=== PATIENT | female | born 1940 | race Caucasian/White ===

== ENCOUNTER → 2016-11-16 | Outpatient (CLI) | payer BC ==
[~2016-11-16] MED LIST: AMLO-114 PO; ASPI81TA28 PO; BYS/5 PO; DARI15TA PO; ERGO1CAP35 PO; GLC/500 PO; LEVO50TA6 PO; NTRGSL/4 UT; OMEP20TA14 PO
--- NOTE | 2016-11-20 12:24 | CODING QUERY MEDICAL NECESSITY ---
SUPPORTING DIAGNOSIS NEEDED Dr. Merchant, A supporting diagnosis is required for the test/procedure performed on this patient in order for us to be reimbursed by the patient's insurance. Please provide a supporting diagnosis for the following test/procedure listed below next to the test name along with your signature. *If there is no additional diagnosis for this patient that would support the following test/procedure please document that below next to the test/procedure. Test(s)/Procedure(s) that require a supporting diagnosis: * ([id number]) DXA BONE DENSITY, AXIAL DIAGNOSIS: DATE OF SERVICE: 11/16/16 Provider Signature: Date: Thank you Levi Machado [facility] Information Management Once completed, please kindly fax back to [phone] For questions please call [phone]
== END | disposition home or self-care (01) ==
LOC: C.MAMM 08:18
PROVIDERS: ATTEND Internal Medicine Geriatric Medicine
DX: Z00.00 Encounter for general adult medical examination without abnormal findings (principal); S22.39XA Fracture of one rib, unspecified side, initial encounter for closed fracture; X58.XXXA Exposure to other specified factors, initial encounter; Z90.722 Acquired absence of ovaries, bilateral; R29.890 Loss of height; Z90.710 Acquired absence of both cervix and uterus

== ENCOUNTER → 2016-12-02 | Outpatient (CLI) | payer BC ==
[2016-12-02 13:16] LABS: HEMATOCRIT 43.4 % (37-47); MEAN CELL VOLUME 84.3 fL (80-100); MEAN CORPUSCULAR HEMOGLOBIN 28.3 pg (25-34); MEAN CORPUSCULAR HGB CONC 33.6 g/dl (32-36); MEAN PLATELET VOLUME 10.3 fL (7.4-10.4); PLATELET COUNT 242 K/uL (130-400); RED BLOOD COUNT 5.15 M/uL (4.2-5.4)
[2016-12-02 13:21] LABS: MANUAL MICROSCOPIC REQUIRED? YES; URINE APPEARANCE CLOUDY (CLEAR); URINE BILIRUBIN NEG (NEG); URINE COLOR YELLOW; URINE NITRITE NEG (NEG); URINE PH 5.5 (4.5-7.5); URINE SPECIFIC GRAVITY >= 1.030 (1.000-1.030); UROBILINOGEN NEG (NEG)
[2016-12-02 13:27] LABS: ESTIMATED AVERAGE GLUCOSE 148 mg/dl; HA1C FLAG Normal (Normal)
[2016-12-02 13:31] LABS: ALT/SGPT 18 U/L (12-78); BLOOD UREA NITROGEN 25 mg/dl (7-18); BUN/CREATININE RATIO 24.6 (10-20); CALCIUM 8.8 mg/dl (8.5-10.1); CARBON DIOXIDE 21 mmol/L (21-32); CHLORIDE 110 mmol/L (98-107); GLUCOSE 125 mg/dl (70-99); POTASSIUM 4.1 mmol/L (3.5-5.1); SODIUM 141 mmol/L (136-145)
[2016-12-02 13:32] LABS: REVIEW REQ? NO
[2016-12-02 13:34] LABS: ALB/GLOB RATIO 1.3 (0.9-2); ALKALINE PHOSPHATASE 53 U/L (45-117); AST/SGOT 12 U/L (15-37)
[2016-12-02 13:40] LABS: CHOLESTEROL/HDL RATIO 1.7; THYROID STIMULATING HORMONE 0.706 uIu/ml (0.300-4.500)
[2016-12-02 13:50] LABS: URINE AMORPHOUS SEDIMENT PRESENT (NONE PRSENT)
[2016-12-02 13:51] LABS: URINE BACTERIA NEG (NEG); URINE RBC 0-4 /hpf (0-4)
== END | disposition home or self-care (01) ==
LOC: C.LABBC 10:07
PROVIDERS: ATTEND Internal Medicine Nephrology
DX: I12.9 Hypertensive chronic kidney disease with stage 1 through stage 4 chronic kidney disease, or unspecified chronic kidney disease (principal); N18.3 Chronic kidney disease, stage 3 (moderate); E55.9 Vitamin D deficiency, unspecified; E11.29 Type 2 diabetes mellitus with other diabetic kidney complication; E03.9 Hypothyroidism, unspecified; E78.5 Hyperlipidemia, unspecified; E11.22 Type 2 diabetes mellitus with diabetic chronic kidney disease

== ENCOUNTER → 2017-01-28 | Outpatient (CLI) | payer BC ==
[2017-01-28 16:57] LABS: BASO % 0.7 %; BASO ABS # 0.06 K/uL (0-0.2); COMPLETE YES; EOS % 4.9 %; HEMATOCRIT 42.8 % (37-47); IG% 0.1 %; LYMPH % 22.4 %; LYMPH ABS # 1.97 K/uL (1.2-3.4); MEAN CELL VOLUME 84.4 fL (80-100); MEAN CORPUSCULAR HEMOGLOBIN 28.2 pg (25-34); MEAN CORPUSCULAR HGB CONC 33.4 g/dl (32-36); MEAN PLATELET VOLUME 10.2 fL (7.4-10.4); MONO % 6.4 %; NEUT % 65.5 %; PLATELET COUNT 267 K/uL (130-400); RED BLOOD COUNT 5.07 M/uL (4.2-5.4); WHITE BLOOD COUNT 8.79 K/uL (4.8-10.8)
[2017-01-28 17:13] LABS: BLOOD UREA NITROGEN 27 mg/dl (7-18); BUN/CREATININE RATIO 24.3 (10-20); CALCIUM 8.9 mg/dl (8.5-10.1); CARBON DIOXIDE 29 mmol/L (21-32); CHLORIDE 106 mmol/L (98-107); GLUCOSE 211 mg/dl (70-99); POTASSIUM 3.8 mmol/L (3.5-5.1); SODIUM 142 mmol/L (136-145)
[2017-01-28 18:17] LABS: LYME DISEASE AB IGG NEG (NEG); LYME DISEASE AB IGM NEG (NEG)
== END | disposition home or self-care (01) ==
LOC: C.LABBC 13:48
PROVIDERS: ATTEND Internal Medicine Geriatric Medicine
DX: M25.569 Pain in unspecified knee (principal)

== ENCOUNTER → 2017-06-09 | Outpatient (CLI) | payer BC ==
[2017-06-09 13:38] LABS: URINE APPEARANCE CLEAR (CLEAR); URINE BILIRUBIN NEG (NEG); URINE COLOR YELLOW; URINE EPITHELIAL CELL AUTO >30 /lpf (0-5); URINE NITRITE NEG (NEG); URINE PH 5.5 (4.5-7.5); URINE SPECIFIC GRAVITY 1.022 (1.000-1.030); UROBILINOGEN NEG (NEG)
[2017-06-09 13:53] LABS: MANUAL MICROSCOPIC REQUIRED? NO; REVIEW REQ? NO
[2017-06-09 13:58] LABS: BLOOD UREA NITROGEN 23 mg/dl (7-18); BUN/CREATININE RATIO 20.5 (10-20); CALCIUM 9.1 mg/dl (8.5-10.1); CARBON DIOXIDE 27 mmol/L (21-32); CHLORIDE 109 mmol/L (98-107); CHOLESTEROL 117 mg/dl (0-200); GLUCOSE 110 mg/dl (70-99); HEMATOCRIT 41.8 % (37-47); MEAN CELL VOLUME 86.5 fL (80-100); MEAN CORPUSCULAR HEMOGLOBIN 29.2 pg (25-34); MEAN CORPUSCULAR HGB CONC 33.7 g/dl (32-36); MEAN PLATELET VOLUME 10.3 fL (7.4-10.4); PLATELET COUNT 240 K/uL (130-400); POTASSIUM 4.3 mmol/L (3.5-5.1); RED BLOOD COUNT 4.83 M/uL (4.2-5.4); SODIUM 140 mmol/L (136-145); WHITE BLOOD COUNT 5.79 K/uL (4.8-10.8)
[2017-06-09 14:07] LABS: ESTIMATED AVERAGE GLUCOSE 134 mg/dl; HA1C FLAG Normal (Normal)
[2017-06-09 14:08] LABS: HDL CHOLESTEROL 60 mg/dl; LDL CHOLESTEROL CALCULATED 35 mg/dl; PHOSPHORUS 3.6 mg/dl (2.5-4.9); TRIGLYCERIDES 111 mg/dl (0-150); VERY LOW DENSITY LIPOPROT CALC 22 mg/dl
[2017-06-09 14:16] LABS: URINE TOTAL PROTEIN < 5.0 mg/dl (0-11.9)
--- NOTE | 2017-06-18 06:41 | CODING QUERY NO DIAGNOSIS ---
TREATMENT RENDERED WITHOUT A DIAGNOSIS Dr. Muro, To promote full compliance with coding requirements relating to patient care, physician participation is requested in all cases of recreation therapy aides teacher uncertainty. Please assist us with providing a diagnosis/symptom for the test(s) below: A diagnosis/symptom was not documented on your Order. A valid diagnosis/symptom is required to bill all insurances. Please remember that we are unable to code a diagnosis of rule out, probable, possible, questionable, or suspected. Tests that require a diagnosis: * CBC W/O DIFF DIAGNOSIS: * RENAL PROFILE DIAGNOSIS: * LIPID PANEL DIAGNOSIS: * GLYCOHEMOGLOBIN A1C DIAGNOSIS: * HA1C RESULT <7.0% DIAGNOSIS: * PROTEIN; TOTAL, URINE DIAGNOSIS: * CREATININE; OTHER SOURCE DIAGNOSIS: * TSH DIAGNOSIS: * PARATHYROID HROMONE, INTACT DIAGNOSIS: * VITAMIN D 25 HYDROXY DIAGNOSIS: DATE OF SERVICE: 06/09/17 Provider Signature: Date: Thank you Levi [facility] Information Management Once completed, please kindly fax back to [phone] For questions please call [phone]
== END | disposition home or self-care (01) ==
LOC: C.LABBC 10:00
PROVIDERS: ATTEND Internal Medicine Nephrology
DX: I12.9 Hypertensive chronic kidney disease with stage 1 through stage 4 chronic kidney disease, or unspecified chronic kidney disease (principal); N18.3 Chronic kidney disease, stage 3 (moderate); R31.29 Other microscopic hematuria; E55.9 Vitamin D deficiency, unspecified; E78.5 Hyperlipidemia, unspecified; E11.29 Type 2 diabetes mellitus with other diabetic kidney complication; E11.22 Type 2 diabetes mellitus with diabetic chronic kidney disease; E03.9 Hypothyroidism, unspecified

== ENCOUNTER → 2017-11-05 | Outpatient (CLI) | payer BC ==
[2017-11-06 06:43] LABS: HEMOGLOBIN A1C 6.6 % (4.5-5.6)
== END | disposition home or self-care (01) ==
LOC: C.LABBC 13:35
PROVIDERS: ATTEND Internal Medicine Geriatric Medicine
DX: E11.9 Type 2 diabetes mellitus without complications (principal)

== ENCOUNTER → 2017-12-09 | Outpatient (CLI) | payer BC ==
[2017-12-09 13:50] LABS: HEMATOCRIT 42.1 % (37-47); HEMOGLOBIN 13.9 g/dL (12.0-16.0); MEAN CELL VOLUME 86.6 fL (80-100); MEAN CORPUSCULAR HEMOGLOBIN 28.6 pg (25-34); MEAN PLATELET VOLUME 9.8 fL (7.4-10.4); PLATELET COUNT 252 K/uL (130-400); RED CELL DISTRIBUTION WIDTH CV 12.8 % (11.5-14.5); RED CELL DISTRIBUTION WIDTH SD 40.7 fL (36.4-46.3)
[2017-12-09 14:08] LABS: HEMOGLOBIN A1C 6.5 % (4.5-5.6)
[2017-12-09 14:15] LABS: ALBUMIN 3.7 gm/dl (3.4-5.0); BLOOD UREA NITROGEN 21 mg/dl (7-18); CALCIUM 9.2 mg/dl (8.5-10.1); CARBON DIOXIDE 27 mmol/L (21-32); CREATININE 0.99 mg/dl (0.60-1.20); GLUCOSE 112 mg/dl (70-99); POTASSIUM 4.3 mmol/L (3.5-5.1); SODIUM 141 mmol/L (136-145)
== END | disposition home or self-care (01) ==
LOC: C.LABBC 10:52
PROVIDERS: ATTEND Internal Medicine Nephrology
DX: I12.9 Hypertensive chronic kidney disease with stage 1 through stage 4 chronic kidney disease, or unspecified chronic kidney disease (principal); N18.3 Chronic kidney disease, stage 3 (moderate); E78.5 Hyperlipidemia, unspecified; R31.29 Other microscopic hematuria; E55.9 Vitamin D deficiency, unspecified; E11.9 Type 2 diabetes mellitus without complications

== ENCOUNTER → 2018-06-09 | Outpatient (CLI) | payer BC ==
[~2018-06-09] MED LIST changes: -AMLO-114 PO; +AMLO10TA3 PO
[2018-06-09 13:37] LABS: HEMATOCRIT 42.6 % (37-47); MEAN CELL VOLUME 85.5 fL (80-100); MEAN CORPUSCULAR HEMOGLOBIN 28.1 pg (25-34); MEAN CORPUSCULAR HGB CONC 32.9 g/dl (32-36); PLATELET COUNT 283 K/uL (130-400); RED CELL DISTRIBUTION WIDTH CV 12.9 % (11.5-14.5); RED CELL DISTRIBUTION WIDTH SD 40.3 fL (36.4-46.3); WHITE BLOOD COUNT 12.16 K/uL (4.8-10.8)
[2018-06-09 13:49] LABS: ALBUMIN 3.8 gm/dl (3.4-5.0); BLOOD UREA NITROGEN 22 mg/dl (7-18); CALCIUM 9.1 mg/dl (8.5-10.1); CARBON DIOXIDE 22 mmol/L (21-32); CREATININE 1.11 mg/dl (0.60-1.20); GLUCOSE 158 mg/dl (70-99); POTASSIUM 4.3 mmol/L (3.5-5.1); SODIUM 138 mmol/L (136-145)
[2018-06-09 13:50] LABS: CHOLESTEROL 140 mg/dl (0-200); LDL CHOLESTEROL CALCULATED 44 mg/dl; PHOSPHORUS 3.5 mg/dl (2.5-4.9)
[2018-06-09 14:34] LABS: HEMOGLOBIN A1C 6.7 % (4.5-5.6)
== END | disposition home or self-care (01) ==
LOC: C.LABBC 10:12
PROVIDERS: ATTEND Internal Medicine Geriatric Medicine
DX: I12.9 Hypertensive chronic kidney disease with stage 1 through stage 4 chronic kidney disease, or unspecified chronic kidney disease (principal); N18.3 Chronic kidney disease, stage 3 (moderate); R31.29 Other microscopic hematuria; E55.9 Vitamin D deficiency, unspecified; E11.22 Type 2 diabetes mellitus with diabetic chronic kidney disease

== ENCOUNTER 2024-04-18 11:11 | Observation (INO) ==
--- NOTE | 2024-04-18 11:35 | CT Scan Report ---
CT OF THE HEAD WITHOUT CONTRAST CLINICAL HISTORY: neuro deficit, acute stroke suspected. Speech difficulties. COMPARISON STUDY: None. TECHNIQUE: Helical axial images of the head were obtained without IV contrast. Automated exposure con trol was utilized for the study. A dose lowering technique was utilized adhering to the principles o f ALARA. FINDINGS: No acute intracranial hemorrhage, midline shift or mass effect is present. The ventricular system is unremarkable. The basal cisterns are patent. No extra-axial collections are present. There are no findings to suggest acute dural sinus thrombosis or acute territorial infarct. No significant calvarial abnormalities are present. Visualized portions of the sinuses and mastoid air cells are rodríguez ar. IMPRESSION: No acute intracranial findings. ACT 112: Negative or not required by law. Electronically signed by: Reji Leblanc M.D. 04/18/2024 11:34 AM
[2024-04-18] MEDS: OPTIRAY 320 125ml IV ONE (11:36)
--- NOTE | 2024-04-18 11:37 | Emergency Department Note ---
Impression & Plan Stroke-like symptoms, TIA (transient ischemic attack) ED Provider Note NAME: CLARISSA ANAYA AGE: 84 SEX: F : 1940 ARRIVES VIA: Walk-In INFORMANT: Patient, the patient's ED PROVIDER(S): Sergio Zheng DO CHIEF COMPLAINT: Strokelike symptoms HPI: The patient is an 84-year-old female who is a history of diabetes who presented to the emergency department for strokelike symptoms. The patient had similar symptoms a few months ago but symptoms resolved on their own. The patient started having problems at approximately 930 this morning. She was eating breakfast with her . She started having problems with word finding. The patient states that she felt as though she could not speak or find the right words. Her describes garbled speech. She denies having any headache. She denies having any other strokelike symptoms such as unilateral weakness or dizziness. I ROS: See above HPI for pertinent positives & negatives. A total of 10 systems reviewed and were otherwise negative. PAST MEDICAL HISTORY: See Below PAST SURGICAL HISTORY: See Below FAMILY HISTORY: See Below SOCIAL HISTORY: See Below HOME MEDICATIONS: See Below ALLERGIES: See Below VITALS: See Below PHYSICAL EXAMINATION: GENERAL: Patient is awake alert in no acute distress patient is resting comfortably and showing no signs of anxiety EYES: The conjunctivae are clear. The pupils are round and reactive. EARS, NOSE, MOUTH AND THROAT: The nose is without any evidence of any deformity. NECK: The neck is nontender and supple. RESPIRATORY: Normal respiratory effort is noted there is no evidence of wheezing rhonchi or rales CARDIOVASCULAR: Regular rate and rhythm noted there no murmurs rubs or gallops normal S1 normal S2. GASTROINTESTINAL: The abdomen is soft. Abdomen is nontender. MUSCULOSKELETAL/EXTREMITIES: There is no evidence of gross deformity full range of motion is noted in the hips and shoulders. SKIN: There is no obvious evidence of any rash. There are no petechiae, pallor or cyanosis noted. NEUROLOGIC: Patient is awake alert and oriented x3 strength is symmetric patellar reflexes are 2+ bilaterally. Speech was clear. MEDICAL DECISION MAKING: The patient is an 84-year-old female who presented to the emergency department for strokelike symptoms. The patient had similar symptoms a few weeks ago which resolved spontaneously. After her symptoms lasted longer than she expected them this morning she came to the emergency department through triage for further evaluation. The patient did have some slurred speech reportedly at arrival but symptoms quickly improved and on my evaluation the patient's speech was clear. I discussed the patient's laboratory and radiographic studies with her. She was found to have some degree of cerebral artery disease. She also was noted to have some carotid artery disease. She does appear to be someone who is at high risk given his TIA. I discussed her condition with the teleneurologist at [facility]. I also discussed her condition with the [facility] hospitalist. They have agreed to evaluate the patient in the emergency department for further management and disposition. Triage Nursing notes reviewed. Prior medical records reviewed Vital Signs: reviewed and remarkable for no significant abnormalities Differential diagnosis: Infection, dehydration, metabolic abnormality, hypo/hyperglycemia, electrolyte disturbance, anemia, hypoxia, cardiac sources, intracerebral event, toxicologic, neurologic, as well as other pathologies. ER treatment provided: See below Diagnostics interpreted by me: ECG: EKG was obtained in the emergency department. My interpretation is normal sinus rhythm at 83 bpm. There is no ectopy. There is no acute ST segment abnormalities noted. This was compared to a tracing from December 29, 2023. No changes were noted. Cardiac Monitoring: An order was placed for continuous cardiac monitoring. The monitor shows a rate of 83 bpm with sinus rhythm. Laboratory studies: As stated above and show below. Imaging studies: See below. Radiographic imaging was reviewed by myself Consultation(s): I discussed this case with Dr. Burkett who is on-call for the [facility] group. 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) Type 2 diabetes mellitus (Chronic) Spinal stenosis Hypertension (Chronic) Chronic kidney disease, stage 3 (Chronic) Left ankle pain (Chronic) Allergic rhinitis Tremor of both hands (Chronic) Gait disturbance (Chronic) Fatigue (Acute) Vitamin B12 deficiency Seborrheic keratosis (Acute) Hypothyroidism (Acute) Osteoarthritis Vitamin D deficiency (Chronic) SI (sacroiliac) joint dysfunction Overactive bladder Hyperlipidemia Medical History Ductal carcinoma in situ (DCIS) of right breast Spinal stenosis GERD (gastroesophageal reflux disease) Hypothyroidism Diabetes mellitus, type 2 A1C 6/7% 05/2018 Hyperlipidemia Surgical History History of lumpectomy of right breast 11/23/18 H/O colonoscopy 2010 History of hysterectomy 1989 - TOTAL HYSTERECTOMY BSO History of cardiac cath 2015. CHEST TIGHTNESS-CARDIAC CATH, NO STENTS NEEDED. "NORMAL CORONARIES" PER CATH SUMMARY Family History Mother , Passed age 95 of old age No problems noted. Father , Passed in 70's of unknown No problems noted. Daughter No problems noted. Son No problems noted. Family/Other Hypertension Other No family history of adverse response to anesthesia No family history of bleeding disorder Denies family history of Ovarian cancer Prostate cancer Myocardial infarction Breast cancer Colorectal cancer Social History Smoking Status: Never smoker Second Hand Exposure: Yes; Do You Dip or Chew Tobacco: No; Hx Alcohol Use: No Hx Substance Use: No Preferred Language: Welsh Communication Ability: Effective Visual Impairment: No Limitations Hearing Ability: Normal Cnc Supervisor Required: No Beliefs That Will Affect Care: None and Cultural marital status: Current Living Situation: Spouse current occupational status: retired 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 Other Information That Helps Us Care for You: No Feels Safe at Home: Yes Safety Concerns: Feels Safe At This Time Childhood Exposure to Second-Hand Smoke: Yes caffeine: No during the past year weight has: remained stable Dental Care, Regularly: Yes Physical Activity Frequency: Daily Seatbelt Use: always Sunscreen Use: Yes Assistive Devices: Glasses Allergies Allergies Allergy/AdvReac Type Severity Reaction Status Date / Time furosemide Allergy Mild Rash Verified 04/18/24 13:00 Sulfa (Sulfonamide Allergy Mild RASH Verified 04/18/24 13:00 Antibiotics) ondansetron [From Zofran] AdvReac Shakiness Verified 04/18/24 13:00 Home Meds Home Medications Medication Instructions Recorded Confirmed ergocalciferol (vitamin D2) 1,250 50,000 unit PO MONTHLY 11/01/18 04/18/24 mcg (50,000 unit) capsule (Vitamin D2) letrozole 2.5 mg tablet 2.5 mg PO DAILY 01/05/19 04/18/24 coenzyme Q10 30 mg capsule (CoQ-10) 30 mg PO HS 04/14/19 04/18/24 vitamins A,C,Z-vvmg-sgqfpa 2,148 2 tab PO BID 12/02/21 04/18/24 mcg-113 mg-45 mg-17.4 mg tablet (PreserVision AREDS) estradiol 0.01% (0.1 mg/gram) 1 g vaginal DAILY PRN .iritation 04/18/24 04/18/24 vaginal cream triamcinolone acetonide 0.05 % 1 applic topical DAILY PRN .flare 04/18/24 04/18/24 topical ointment up Previous Rx's Medication Instructions Recorded cyanocobalamin (vitamin B-12) 1,000 mcg PO DAILY #30 caps 05/08/22 1,000 mcg capsule lisinopril 5 mg tablet 5 mg PO DAILY #90 tabs 07/08/23 metformin 500 mg tablet,extended 500 mg PO BID #60 tabs 07/08/23 release 24 hr levothyroxine 25 mcg tablet 25 mcg PO DAILY #90 tabs 07/27/23 amlodipine 10 mg tablet 10 mg PO QAM #90 tabs 09/15/23 solifenacin 10 mg tablet (Vesicare) 10 mg PO DAILY #90 tabs 01/06/24 rosuvastatin 5 mg tablet 5 mg PO 3XWK #36 tabs 02/14/24 Results & Data (ED) Vital Signs Vital Signs - 24 hr 04/18/24 11:13 04/18/24 11:44 Temperature 36.6 C Temperature Source Temporal Artery Scan Pulse Rate 86 83 Pulse Rhythm Regular Pulse Strength Normal Respiratory Rate 20 Respiratory Effort / Characteristics Non-Labored Spontaneous Respiratory Depth Normal Respiratory Pattern Regular Blood Pressure 134/71 Blood Pressure Mean 92 Blood Pressure Position Sitting Pulse Oximetry 97 Oxygen Delivery Method Room Air Sepsis Recent Fever Within 48 Hours No Sepsis New/Unexplained Change in Mental Status No Sepsis Action Taken by Nursing No Action Required Home Medications Current Medication List: was personally reviewed by me Laboratory Data Attestation: I reviewed the patient's lab results. 04/19/24 06:33 04/19/24 06:33 Lab Results 04/18/24 04/18/24 Range/Units 11:31 11:33 WBC 7.29 (4.8-10.8) K/ul RBC 4.64 (4.20-5.40) M/uL Hgb 12.9 (12.0-16.0) g/dl Hct 39.8 (37.0-47.0) % MCV 85.8 (80.0-100.0) fL MCH 27.8 (25.0-34.0) pg MCHC 32.4 (32.0-36.0) g/dL RDW Std Deviation 41.5 (36.4-46.3) fL RDW Coeff of Danny 13.2 (11.5-14.5) % Plt Count 228 (130-400) K/uL MPV 8.9 L (9.4-12.4) fL Immature Gran % (Auto) 0.4 % Neut % (Auto) 63.5 % Lymph % (Auto) 21.5 % [place] % (Auto) 7.5 % Eos % (Auto) 6.3 % Baso % (Auto) 0.8 % Neut # (Auto) 4.62 (1.40-6.50) K/uL Lymph # (Auto) 1.57 (1.20-3.40) K/uL [place] # (Auto) 0.55 (0.11-0.59) K/uL Eos # (Auto) 0.46 (0.00-0.50) K/uL Baso # (Auto) 0.06 (0.00-0.20) K/uL Immature Gran # (Auto) 0.03 (0.01-0.20) K/uL PT 10.9 (9.0-12.0) Seconds INR 1.0 (0.9-1.1) APTT 25 (21-31) Seconds PTT Ratio 0.9 Sodium 136 (136-145) mmol/L Potassium 4.1 (3.5-5.1) mmol/L Chloride 106 (98-107) mmol/L Carbon Dioxide 23 (21-32) mmol/L Anion Gap 7 (3-11) BUN 23 (6-23) mg/dl Creatinine 0.94 (0.6-1.2) mg/dl Est Cr Clr Drug Dosing 42.5 ml/min Est GFR ( Amer) 65.0 ml/min Est GFR (Non-Af Amer) 56.1 ml/min BUN/Creatinine Ratio 24.5 H (10-20) Glucose 152 H (70-99(Fasting)) mg/dl POC Glucose 138 H (70-99) mg/dl Calcium 8.5 L (8.6-10.3) mg/dl Magnesium 1.8 (1.7-2.4) mg/dl Total Bilirubin 0.3 (0.2-1.0) mg/dl AST 11 L (13-39) U/L ALT 8 (7-52) U/L Alkaline Phosphatase 39 (34-104) U/L Troponin I High Sens 2.7 (0-14) pg/ml Total Protein 5.5 L (6.0-8.3) gm/dl Albumin 3.6 (3.4-5.0) gm/dl Globulin 1.9 L (2.5-4.0) gm/dl Albumin/Globulin Ratio 1.9 (0.9-2) TSH 0.766 (0.300-4.500) uIu/ml Administered Medications Levothyroxine Sodium (Levothyroxine Sodium 25 Mcg Tablet) 25 mcg PO DAILYBB [facility] Stop: 05/19/24 06:29 Last Admin: 04/19/24 06:25 Dose: 25 mcg Documented By: BISI Rosuvastatin Calcium (Rosuvastatin Calcium 5 Mg Tab) 5 mg PO DAILY RIGOBERTO Stop: 05/18/24 15:59 Last Admin: 04/18/24 16:58 Dose: Not Given Documented By: WRS Discontinued Medications Aspirin (Aspirin 81 Mg Chew) 324 mg PO NOW STA Stop: 04/18/24 12:23 Last Admin: 04/18/24 13:12 Dose: 324 mg Documented By: SUE Atorvastatin Calcium (Atorvastatin 40 Mg Tab) 80 mg PO QAM [facility] Stop: 05/18/24 12:29 Last Admin: 04/18/24 13:18 Dose: Not Given Documented By: SUE Ioversol (Optiray 320 125ml) 120 ml IV ONCE ONE Stop: 04/18/24 11:37 Last Admin: 04/18/24 11:36 Dose: 120 ml Documented By: BEBA Imaging Data Attestation: I personally reviewed and interpreted this imaging study as follows: My Impression: 1 view chest x-ray was obtained in the emergency department. My interpretation is no free air or definite infiltrate, final report below. CT of the brain was obtained in the emergency department. My interpretation is no intracranial hemorrhage or mass effect, final report below. Radiologist's Impression: Chest X-Ray 04/18/24 11:19 XR chest 1V portable CLINICAL HISTORY: neuro deficit, acute stroke suspected TECHNIQUE: Single frontal radiograph of the chest was obtained. Comparison: Comparison is made to chest radiograph 11/25/2021 FINDINGS: No lines and tubes are seen. Calcified aortic knob is seen. The lungs are clear. No evidence of pleural effusion or pneumothorax. IMPRESSION: No acute chest disease. ACT 112: Negative or not required by law. Electronically signed by: Bairon Post M.D. 04/18/2024 11:[address] 04/18/24 11:19 CT OF THE HEAD WITHOUT CONTRAST CLINICAL HISTORY: neuro deficit, acute stroke suspected. Speech difficulties. COMPARISON STUDY: None. TECHNIQUE: Helical axial images of the head were obtained without IV contrast. Automated exposure control was utilized for the study. A dose lowering technique was utilized adhering to the principles of ALARA. FINDINGS: No acute intracranial hemorrhage, midline shift or mass effect is present. The ventricular system is unremarkable. The basal cisterns are patent. No extra-axial collections are present. There are no findings to suggest acute dural sinus thrombosis or acute territorial infarct. No significant calvarial abnormalities are present. Visualized portions of the sinuses and mastoid air cells are clear. IMPRESSION: No acute intracranial findings. ACT 112: Negative or not required by law. Electronically signed by: Reji Leblanc M.D. 04/18/2024 11:34 AM Head CTA 04/18/24 11:19 CTA ANGIOGRAPHY OF THE HEAD CLINICAL HISTORY: neuro deficit, acute stroke suspected COMPARISON STUDY: No previous studies for comparison. TECHNIQUE: Helical axial images of the head were obtained following uneventful intravenous administration of 120 cc of Optiray. Sagittal and coronal reconstructions were viewed as well as maximal intensity projections on an independent 3-D workstation. Automated exposure control was utilized for the study. A dose lowering technique was utilized adhering to the principles of ALARA. CT DOSE: 1109.83 mGy.cm FINDINGS: No acute intracranial hemorrhage is identified on the head CT which will be reported separately. Ventricular system is unremarkable. Basal cisterns are patent. There are no extra-axial collections. The bilateral M1, M2, A1 and A2 segments are patent. There is mild calcified plaque within the cavernous carotids without stenosis. There is moderate irregularity of the left P2 segment with moderate multifocal stenoses. No vessel occlusion is identified on this examination. Major dural sinuses are patent. IMPRESSION: 1. No large vessel occlusion. No intracranial aneurysm. 2. Moderate multifocal stenoses within the left P2 segment. Vessels patent. ACT 112: Negative or not required by law. Electronically signed by: Reji Leblanc M.D. 04/18/2024 11:50 AM Neck CTA 04/18/24 11:19 CT angio neck with con CLINICAL HISTORY: neuro deficit, acute stroke suspected TECHNIQUE: CT angiography of the neck was performed following intravenous administration of iodinated contrast. Coronal and sagittal MIPS were obtained from the axial data set and were submitted for review. Automated dose lowering techniques and/or adjustment according to patient size were utilized for this examination. All measurements were calculated based on NASCET criteria. Comparison: None available at the time of this dictation. FINDINGS: Numerous thyroid nodules measure up to 32 mm in diameter. CTA Neck: A 3 vessel aortic arch is shown. There is no significant atherosclerotic plaque in the aortic arch or the origins of the innominate, left common carotid, and left subclavian arteries. There is mild calcified atherosclerotic plaque at the bifurcation of the bilateral common carotid arteries without hemodynamically significant flow stenosis. There is no dissection present. The left vertebral artery is dominant. IMPRESSION: No occlusion, hemodynamically significant stenosis, or dissection in the major cervical arteries. Assessment of stenosis of the internal carotid arteries is based on NASCET criteria. ACT 112: Negative or not required by law. Electronically signed by: Bairon Post M.D. 04/18/2024 11:42 AM Discharge Plan Visit Data Chief Complaint: Neuro Symptoms/Deficit Stated Complaint: speech difficulty ED Provider: Sergio Zheng Discharge Problem: Stroke-like symptoms, TIA (transient ischemic attack) Patient Disposition: Admitted As Inpatient Discharge Instructions Interventions: ED Discharge Assessment Last Done: 04/18/24 15:41
[2024-04-18 11:43] LABS: Basophils # (auto) 0.06 K/uL (0.00-0.20); Basophils % (auto) 0.8 %; Eosinophils # (auto) 0.46 K/uL (0.00-0.50); Eosinophils % (auto) 6.3 %; Hematocrit (blood only) 39.8 % (37.0-47.0); Hemoglobin 12.9 g/dl (12.0-16.0); Immature Granulocytes # (auto) 0.03 K/uL (0.01-0.20); Immature Granulocytes % (auto) 0.4 %; Lymphocytes # (auto) 1.57 K/uL (1.20-3.40); Lymphocytes % (auto) 21.5 %; Mean Corpuscular Hemoglobin 27.8 pg (25.0-34.0); Mean Corpuscular Hgb Conc 32.4 g/dL (32.0-36.0); Mean Corpuscular Volume 85.8 fL (80.0-100.0); Mean Platelet Volume 8.9 fL (9.4-12.4); Monocytes # (auto) 0.55 K/uL (0.11-0.59); Monocytes % (auto) 7.5 %; Neutrophils # (auto) 4.62 K/uL (1.40-6.50); Neutrophils % (auto) 63.5 %; Platelet Count 228 K/uL (130-400); RDW Coefficient of Variation 13.2 % (11.5-14.5); RDW Standard Deviation 41.5 fL (36.4-46.3); Red Blood Count 4.64 M/uL (4.20-5.40); White Blood Count 7.29 K/ul (4.8-10.8)
--- NOTE | 2024-04-18 11:45 | CT Scan Report ---
CT angio neck with con CLINICAL HISTORY: neuro deficit, acute stroke suspected TECHNIQUE: CT angiography of the neck was performed following intravenous administration of iodinate d contrast. Coronal and sagittal MIPS were obtained from the axial data set and were submitted for re view. Automated dose lowering techniques and/or adjustment according to patient size were utilized f or this examination. All measurements were calculated based on NASCET criteria. Comparison: None available at the time of this dictation. FINDINGS: Numerous thyroid nodules measure up to 32 mm in diameter. CTA Neck: A 3 vessel aortic arch is shown. There is no significant atherosclerotic plaque in the aor tic arch or the origins of the innominate, left common carotid, and left subclavian arteries. There is mild calcified atherosclerotic plaque at the bifurcation of the bilateral common carotid arteries without hemodynamically significant flow stenosis. There is no dissection present. The left vertebral artery is dominant. IMPRESSION: No occlusion, hemodynamically significant stenosis, or dissection in the major cervical arteries. Assessment of stenosis of the internal carotid arteries is based on NASCET criteria. ACT 112: Negative or not required by law. Electronically signed by: Bairon Post M.D. 04/18/2024 11:42 AM
--- NOTE | 2024-04-18 11:52 | CT Scan Report ---
CTA ANGIOGRAPHY OF THE HEAD CLINICAL HISTORY: neuro deficit, acute stroke suspected COMPARISON STUDY: No previous studies for comparison. TECHNIQUE: Helical axial images of the head were obtained following uneventful intravenous administr ation of 120 cc of Optiray. Sagittal and coronal reconstructions were viewed as well as maximal inten sity projections on an independent 3-D workstation. Automated exposure control was utilized for the study. A dose lowering technique was utilized adhering to the principles of ALARA. CT DOSE: 1109.83 mGy.cm FINDINGS: No acute intracranial hemorrhage is identified on the head CT which will be reported separa tely. Ventricular system is unremarkable. Basal cisterns are patent. There are no extra-axial collect ions. The bilateral M1, M2, A1 and A2 segments are patent. There is mild calcified plaque within the cavernous carotids without stenosis. There is moderate irregularity of the left P2 segment with moder ate multifocal stenoses. No vessel occlusion is identified on this examination. Major dural sinuses a re patent. IMPRESSION: 1. No large vessel occlusion. No intracranial aneurysm. 2. Moderate multifocal stenoses within the left P2 segment. Vessels patent. ACT 112: Negative or not required by law. Electronically signed by: Reji Leblanc M.D. 04/18/2024 11:50 AM
--- NOTE | 2024-04-18 11:59 | XRay Report ---
XR chest 1V portable CLINICAL HISTORY: neuro deficit, acute stroke suspected TECHNIQUE: Single frontal radiograph of the chest was obtained. Comparison: Comparison is made to chest radiograph 11/25/2021 FINDINGS: No lines and tubes are seen. Calcified aortic knob is seen. The lungs are clear. No evidence of pleur al effusion or pneumothorax. IMPRESSION: No acute chest disease. ACT 112: Negative or not required by law. Electronically signed by: Bairon Post M.D. 04/18/2024 11:57 AM
[2024-04-18 12:06] LABS: Albumin Globulin Ratio 1.9 (0.9-2); Albumin Level 3.6 gm/dl (3.4-5.0); BUN Creatinine Ratio 24.5 (10-20); Bilirubin,Total 0.3 mg/dl (0.2-1.0); Calcium 8.5 mg/dl (8.6-10.3); Creatinine Clr Calc Pharmacy 42.5 ml/min; Est GFR (Non-African American) 56.1 ml/min; Globulin 1.9 gm/dl (2.5-4.0); Magnesium 1.8 mg/dl (1.7-2.4); Potassium 4.1 mmol/L (3.5-5.1); Total Protein 5.5 gm/dl (6.0-8.3)
[2024-04-18 12:11] LABS: Troponin I High Sensitivity 2.7 pg/ml (0-14)
[2024-04-18] MEDS ORDERED: PHARMACIST DISCHARGE MED REC CONSULT PRN (12:22)
[2024-04-18 12:26] LABS: Partial Thromboplastin Ratio 0.9; Partial Thromboplastin Time 25 Seconds (21-31); Prothrombin Time 10.9 Seconds (9.0-12.0)
--- NOTE | 2024-04-18 12:28 | History & Physical Report ---
Date of Service April 18, 2024 Assessment & Plan (1) Stroke-like symptoms: Plan: Admit to med/telemetry Currently stable with nearly resolved symptoms at the time of admission Presented to the ED today after acute onset of slurred speech at approximately 9:30 this morning Patient was made a stroke alert after initial evaluation by triage, per ED staff patient's symptoms were already improving by the time she was evaluated by the ED physician and CT, with symptoms nearly resolved by the time she was evaluated by [facility] telestroke provider. Patient is currently back to her neurologic baseline at the time of admission We will give 324 mg aspirin now, we will plan to continue 81 mg daily moving forward starting 04/19/2024 Will obtain MRI of the brain without contrast, TTE, bilateral carotid Dopplers, and thyroid ultrasound for further evaluation Follow a.m. hemoglobin A1c and fasting lipid panel Patient normally taking 5 mg Crestor 3 times a week prior to today Will plan to start daily dosing, follow fasting lipid panel tomorrow morning and adjust dosing as needed Will allow for permissive hypertension until MRI of the brain is read Neurology/PT/OT consults have been placed Will order bedside dysphagia screen Every 4 hours neuro checks Heart healthy/diabetes mellitus type 2 diet Bilateral SCDs for DVT prophylaxis A.m. CBC, BMP, hemoglobin A1c, fasting lipid panel (2) Type 2 diabetes mellitus: Plan: Monitor BSG ACHS, goal is [id number] Hold home metformin for now Patient is not on insulin at home, will hold basal insulin for now Will continue with sliding scale and correction factor ACHS for now Adjust regimen as needed (3) Thyroid nodule: Plan: CTA of the neck today noted numerous prominent thyroid nodules Patient has a known history of hypothyroidism Will obtain TSH with reflex free T4 if needed Will obtain thyroid ultrasound as patient will need bilateral carotid ultrasound during this admission as well (4) Hypertension: Plan: Stable Holding home amlodipine, lisinopril to allow for permissive hypertension until MRI of the brain results are back (5) Hypothyroidism: Plan: Continue levothyroxine Plan The patient was discussed with Dr. 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 Around 10 AM this morning she noticed that she was starting to have issues with her speech.She was noted to be stable on arrival to the ED. Labs including CBC and CMP were unremarkable. CT of the head and brain without contrast was read as negative for acute findings. CTA of the neck with contrast was negative for occlusion, hemodynamically significant stenosis, or dissection in the major cervical arteries. It did note numerous prominent thyroid nodules and recommended nonemergent thyroid ultrasound. CT of the head was read as negative for acute large vessel occlusion or intracranial aneurysm. It did note moderate multifocal stenosis within the left P2 segment with other vessels patent. Of note the ED staff did report that by the time the patient arrived back to her ED room from her CT scans her symptoms had essentially resolved. The ED staff did speak with the on-call [facility] telestroke provider who did evaluate the patient and recommended admission with initiation of full dose aspirin, bilateral carotid Dopplers due to some stenosis of the left carotid artery, and routine TIA workup. Patient sitting in bed in no acute distress at the time of exam with her bedside, history was obtained from both. They confirm she was in her normal state of health this morning when she woke up around 8 AM. They were both outside sitting on their porch around 9:30 AM when the patient had acute onset of slurred speech/difficulty getting her words out. Both her and the patient herself noticed this, the patient was cognizant that she was having new difficulties speaking. The patient and her deny the patient having any facial droop, the patient denies any new paresthesias, unilateral weakness, changes in vision, hearing, taste, or smell, headache, or recent trauma/falls. They both confirm that the patient is back to her normal neurologic baseline at the time of my exam. She did not have her a.m. medications prior to arrival today. Denies previous history of stroke/TIA. She is a full code and her is her POA. Please refer to Dr. Burkett' attestation for any changes to the treatment plan. Allergies Allergy/AdvReac Type Severity Reaction Status Date / Time furosemide Allergy Mild Rash Verified 04/18/24 13:00 Sulfa (Sulfonamide Allergy Mild RASH Verified 04/18/24 13:00 Antibiotics) ondansetron [From Zofran] AdvReac Shakiness Verified 04/18/24 13:00 Home Medications Medication Instructions Recorded Confirmed Type ergocalciferol (vitamin D2) 1,250 50,000 unit PO MONTHLY 11/01/18 04/18/24 History mcg (50,000 unit) capsule (Vitamin D2) letrozole 2.5 mg tablet 2.5 mg PO DAILY 01/05/19 04/18/24 History coenzyme Q10 30 mg capsule (CoQ-10) 30 mg PO HS 04/14/19 04/18/24 History vitamins A,C,D-onwv-ycpbki 2,148 2 tab PO BID 12/02/21 04/18/24 History mcg-113 mg-45 mg-17.4 mg tablet (PreserVision AREDS) cyanocobalamin (vitamin B-12) 1,000 mcg PO DAILY #30 caps 05/08/22 04/18/24 Rx 1,000 mcg capsule lisinopril 5 mg tablet 5 mg PO DAILY #90 tabs 07/08/23 04/18/24 Rx metformin 500 mg tablet,extended 500 mg PO BID #60 tabs 07/08/23 04/18/24 Rx release 24 hr levothyroxine 25 mcg tablet 25 mcg PO DAILY #90 tabs 07/27/23 04/18/24 Rx amlodipine 10 mg tablet 10 mg PO QAM #90 tabs 09/15/23 04/18/24 Rx solifenacin 10 mg tablet (Vesicare) 10 mg PO DAILY #90 tabs 01/06/24 04/18/24 Rx rosuvastatin 5 mg tablet 5 mg PO 3XWK #36 tabs 02/14/24 04/18/24 Rx estradiol 0.01% (0.1 mg/gram) 1 g vaginal DAILY PRN .iritation 04/18/24 04/18/24 History vaginal cream triamcinolone acetonide 0.05 % 1 applic topical DAILY PRN .flare 04/18/24 04/18/24 History topical ointment up 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) Type 2 diabetes mellitus (Chronic) Spinal stenosis Hypertension (Chronic) Chronic kidney disease, stage 3 (Chronic) Left ankle pain (Chronic) Allergic rhinitis Tremor of both hands (Chronic) Gait disturbance (Chronic) Fatigue (Acute) Vitamin B12 deficiency Seborrheic keratosis (Acute) Hypothyroidism (Acute) Osteoarthritis Vitamin D deficiency (Chronic) SI (sacroiliac) joint dysfunction Overactive bladder Hyperlipidemia Medical History Ductal carcinoma in situ (DCIS) of right breast Spinal stenosis GERD (gastroesophageal reflux disease) Hypothyroidism Diabetes mellitus, type 2 A1C 6/7% 05/2018 Hyperlipidemia Surgical History History of lumpectomy of right breast 11/23/18 H/O colonoscopy 2010 History of hysterectomy 1989 - TOTAL HYSTERECTOMY BSO History of cardiac cath 2015. CHEST TIGHTNESS-CARDIAC CATH, NO STENTS NEEDED. "NORMAL CORONARIES" PER CATH SUMMARY Family History Mother , Passed age 95 of old age No problems noted. Father , Passed in 70's of unknown No problems noted. Daughter No problems noted. Son No problems noted. Family/Other Hypertension Other No family history of adverse response to anesthesia No family history of bleeding disorder Denies family history of Ovarian cancer Prostate cancer Myocardial infarction Breast cancer Colorectal cancer Social History Smoking Status: Never smoker Second Hand Exposure: Yes; Do You Dip or Chew Tobacco: No; Hx Alcohol Use: No Hx Substance Use: No Preferred Language: Swazi Communication Ability: Effective Visual Impairment: No Limitations Hearing Ability: Normal Display And Banner Designer Required: No Beliefs That Will Affect Care: None marital status: Current Living Situation: Spouse current occupational status: retired 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 Feels Safe at Home: Yes Childhood Exposure to Second-Hand Smoke: Yes caffeine: No during the past year weight has: remained stable Dental Care, Regularly: Yes Physical Activity Frequency: Daily Seatbelt Use: always Sunscreen Use: Yes Assistive Devices: Glasses Physical Exam Physical Exam: Physical Exam: General: In no acute distress, stated age, well-nourished, good hygiene HEENT: Normocephalic, atraumatic, no scleral icterus, pupils around round, symmetrical, and reactive to light, moist mucus membranes, +thyromegaly, trachea midline, no thyromegaly Chest/Pulm: No respiratory distress, symmetrical chest expansion, clear breath sounds throughout Cardiac: RRR, no murmurs noted Abdomen: Negative for ascites and bruising, normoactive bowel sounds, soft, non-tender to palpation throughout Musculoskeletal: Symmetrical and without signs of acute trauma, upper and lower extremities with full ROM, no atrophy, spasticity, or flaccidity Extremities: Radial, dorsalis pedis, and posterior tibial pulses are intact and symmetrical, no edema noted in the BL LE's Skin: Warm, dry, no rashes , lesions, or scars noted Neuro: Alert and oriented to person, place, month, year, and president, no focal defects, CN II-XII tested and intact, Negative cerebellar and pronator drift testing in the bilateral upper extremities, no tremors noted Psych: No acute distress, calm and cooperative during the exam Results & Data Results & Data Vital Signs (Past 12 Hours) Vital Signs Temp Pulse Resp BP Pulse Ox O2 Del Method 04/18/24 11:44 83 04/18/24 11:13 36.6 C 86 20 134/71 97 Room Air Laboratory Results Abnormal lab results 04/18/24 04/18/24 Range/Units 11:31 11:33 MPV 8.9 L (9.4-12.4) fL BUN/Creatinine Ratio 24.5 H (10-20) Glucose 152 H (70-99(Fasting)) mg/dl POC Glucose 138 H (70-99) mg/dl Calcium 8.5 L (8.6-10.3) mg/dl AST 11 L (13-39) U/L Total Protein 5.5 L (6.0-8.3) gm/dl Globulin 1.9 L (2.5-4.0) gm/dl Diagnostic Findings Chest X-Ray 04/18/24 11:19 XR chest 1V portable CLINICAL HISTORY: neuro deficit, acute stroke suspected TECHNIQUE: Single frontal radiograph of the chest was obtained. Comparison: Comparison is made to chest radiograph 11/25/2021 FINDINGS: No lines and tubes are seen. Calcified aortic knob is seen. The lungs are clear. No evidence of pleural effusion or pneumothorax. IMPRESSION: No acute chest disease. ACT 112: Negative or not required by law. Electronically signed by: Bairon Post M.D. 04/18/2024 11:[address] 04/18/24 11:19 CT OF THE HEAD WITHOUT CONTRAST CLINICAL HISTORY: neuro deficit, acute stroke suspected. Speech difficulties. COMPARISON STUDY: None. TECHNIQUE: Helical axial images of the head were obtained without IV contrast. Automated exposure control was utilized for the study. A dose lowering technique was utilized adhering to the principles of ALARA. FINDINGS: No acute intracranial hemorrhage, midline shift or mass effect is present. The ventricular system is unremarkable. The basal cisterns are patent. No extra-axial collections are present. There are no findings to suggest acute dural sinus thrombosis or acute territorial infarct. No significant calvarial abnormalities are present. Visualized portions of the sinuses and mastoid air cells are clear. IMPRESSION: No acute intracranial findings. ACT 112: Negative or not required by law. Electronically signed by: Reji Leblanc M.D. 04/18/2024 11:34 AM Head CTA 04/18/24 11:19 CTA ANGIOGRAPHY OF THE HEAD CLINICAL HISTORY: neuro deficit, acute stroke suspected COMPARISON STUDY: No previous studies for comparison. TECHNIQUE: Helical axial images of the head were obtained following uneventful intravenous administration of 120 cc of Optiray. Sagittal and coronal reconstructions were viewed as well as maximal intensity projections on an independent 3-D workstation. Automated exposure control was utilized for the study. A dose lowering technique was utilized adhering to the principles of ALARA. CT DOSE: 1109.83 mGy.cm FINDINGS: No acute intracranial hemorrhage is identified on the head CT which will be reported separately. Ventricular system is unremarkable. Basal cisterns are patent. There are no extra-axial collections. The bilateral M1, M2, A1 and A 2 segments are patent. There is mild calcified plaque within the cavernous carotids without stenosis. There is moderate irregularity of the left P2 segment with moderate multifocal stenoses. No vessel occlusion is identified on this examination. Major dural sinuses are patent. IMPRESSION: 1. No large vessel occlusion. No intracranial aneurysm. 2. Moderate multifocal stenoses within the left P2 segment. Vessels patent. ACT 112: Negative or not required by law. Electronically signed by: Rjei Leblanc M.D. 04/18/2024 11:50 AM Neck CTA 04/18/24 11:19 CT angio neck with con CLINICAL HISTORY: neuro deficit, acute stroke suspected TECHNIQUE: CT angiography of the neck was performed following intravenous administration of iodinated contrast. Coronal and sagittal MIPS were obtained from the axial data set and were submitted for review. Automated dose lowering techniques and/or adjustment according to patient size were utilized for this examination. All measurements were calculated based on NASCET criteria. Comparison: None available at the time of this dictation. FINDINGS: Numerous thyroid nodules measure up to 32 mm in diameter. CTA Neck: A 3 vessel aortic arch is shown. There is no significant atherosclerotic plaque in the aortic arch or the origins of the innominate, left common carotid, and left subclavian arteries. There is mild calcified atherosclerotic plaque at the bifurcation of the bilateral common carotid arteries without hemodynamically significant flow stenosis. There is no dissection present. The left vertebral artery is dominant. IMPRESSION: No occlusion, hemodynamically significant stenosis, or dissection in the major cervical arteries. Assessment of stenosis of the internal carotid arteries is based on NASCET criteria. ACT 112: Negative or not required by law. Electronically signed by: Bairon Post M.D. 04/18/2024 11:42 AM ECG Additional Comments: Normal sinus rhythm Left anterior fascicular block Septal infarct , age undetermined Abnormal ECG Code Status & VTE Plan Code Status Full code VTE Prophylaxis Plan VTE Prophylaxis will be ordered: Yes Supervising Physician Co-Signing Physician Notes I have personally seen, evaluated and examined the patient. I have also personally discussed the management of the patient with the resident physician/BENSON and I agree with the exam findings documented in the history and physical examination and the documented assessment and plan unless otherwise stated below. Brief Exam: In general this is a pleasant 83-year-old female accompanied by her at the time of my exam. She interacts appropriately and pleasantly. She is alert and oriented x 3 at the time of my exam and feels back to her baseline health and mental and neurological status. HEENT: Normocephalic atraumatic Heart: Regular rate and rhythm I do not appreciate murmur or ectopy or rub. Lungs: Are clear bilaterally. Abdomen: Soft nontender positive bowel sounds no appreciable organomegaly or abdominal bruits. Extremities: Are intact. Peripheral pulses palpable strong and equal x 4. No pronator drift. No loss in sensation to fine pinprick. Strength is 5 out of 5 x 4. Neurologically: Alert and oriented x 3. No cerebellar signs. Cranial nerves II through XII are intact with no focal deficit on exam. Assessment/plan: Probable TIA as discussed above. MRI of the brain. Carotid ultrasounds per telestroke recommendations. Thyroid ultrasound given the thyroid nodules on CAT scan. This will need to be followed up on as an outpatient accordingly. Refer to orders for further planning. We will do permissive hypertension at this time pending further testing. Statin therapy. Aspirin therapy. PG Care Time/CCT Total # of Minutes Spent Total Time Spent with Patient: Total time spent is greater than 50% in coordination of care (as documented) at patient's floor/unit and/or counseling patient: Coding [place] [address] INT INP/OBS CARE 3/75MIN Patient Type Established Medical Decision Making Moderate Complexity Diagnoses Stroke-like symptoms R29.90 Type 2 diabetes mellitus with stage 3a chronic kidney disease, without long-term current use of insulin E11.22; N18.31 Chronic kidney disease stage: stage 3 (moderate) Chronic kidney disease stage 3 subtype: stage 3a (GFR 45-59) Diabetes mellitus complication detail: with chronic kidney disease Diabetes mellitus complication status: with kidney complications Diabetes mellitus senior care insulin use: without senior care use Thyroid nodule E04.1 Primary hypertension I10 Hypertension type: primary hypertension Acquired hypothyroidism E03.9 Hypothyroidism type: acquired (2) Type 2 diabetes mellitus Chronic kidney disease stage: stage 3 (moderate) Chronic kidney disease stage 3 subtype: stage 3a (GFR 45-59) Diabetes mellitus complication detail: with chronic kidney disease Diabetes mellitus complication status: with kidney complications Diabetes mellitus intermediate designer insulin use: without intermediate designer use Qualified Code(s): E11.22 - Type 2 diabetes mellitus with diabetic chronic kidney disease; N18.31 - Chronic kidney disease, stage 3a (4) Hypertension Hypertension type: primary hypertension Qualified Code(s): I10 - Essential (primary) hypertension (5) Hypothyroidism Hypothyroidism type: acquired Qualified Code(s): E03.9 - Hypothyroidism, unspecified
[2024-04-18] MEDS ORDERED: ACETAMINOPHEN 325 MG TAB PO PRN (12:30)
[2024-04-18] MEDS ORDERED: GLUCOSE 40% GEL 15 GM TUBE PO PRN (12:30)
[2024-04-18] MEDS ORDERED: GLUCAGON FOR INJ 1 MG VIAL SQ PRN (12:30)
[2024-04-18] MEDS ORDERED: DEXTROSE 50% 50 ML SYRINGE IV PRN (12:30)
[2024-04-18] MEDS ORDERED: GLUCOSE 10 TAB/TUBE PO PRN (12:30)
[2024-04-18] MEDS ORDERED: CARBOHYDRATES FOR HYPOGLYCEMIA PO PRN (12:30)
--- NOTE | 2024-04-18 12:45 | Electrocardiogram Report ---
Test Reason : Blood Pressure : / mmHG Vent. Rate : 083 BPM Atrial Rate : 083 BPM P-R Int : 188 ms QRS Dur : 086 ms QT Int : 388 ms P-R-T Axes : 054 -49 089 degrees QTc Int : 455 ms Normal sinus rhythm Left anterior fascicular block Old Septal infarct (cited on or before 29-DEC-2023) Abnormal ECG When compared with ECG of 29-DEC-2023 23:58, No significant change was found Confirmed by Huseyin Chacno ([id number]) on 04/18/2024 12:45:00 PM Referred By: REFERRED SELF Confirmed By:Huseyin Chacon
[2024-04-18] MEDS: ASPIRIN 81 MG CHEW PO STA (13:12)
[2024-04-18] MEDS: ATORVASTATIN 40 MG TAB PO SCH (13:18)
[2024-04-18 13:26] LABS: Appearance Urine Clear (Clear); Bilirubin Urine Negative (Negative); Blood Urine Negative (Negative); Color Urine Yellow; Glucose Urine UA Negative (Negative); Ketones Urine Negative (Negative); Leukocyte Esterase Urine Negative (Negative); Nitrite Urine Negative (Negative); Protein Urine Negative (Negative); Specific Gravity Urine 1.037 (1.000-1.030); Urobilinogen Urine Negative (Negative); pH Urine 6.5 (4.5-7.5)
[2024-04-18 13:31] LABS: Thyroid Stimulating Hormone 0.766 uIu/ml (0.300-4.500)
--- NOTE | 2024-04-18 15:27 | Ultrasound Report ---
CAROTID ARTERY ULTRASOUND CLINICAL HISTORY: Transient ischemic attack. COMPARISON STUDY: CTA of the neck April 18, 2024. TECHNIQUE: Real-time, grayscale, and color Doppler sonography of the carotid and vertebral arteries w as performed. Images were viewed in the transverse and longitudinal planes. FINDINGS: There is moderate atherosclerotic plaque. Velocity measurements are listed below. COMMON CAROTID PEAK SYSTOLIC VELOCITY (CM/S): RIGHT 83 LEFT 91 ICA PEAK SYSTOLIC VELOCITY (CM/S): RIGHT 64 LEFT 74 Systolic ratios between the internal to common carotid arteries are normal. Antegrade flow is seen in the vertebral arteries. The external carotid arteries are patent. IMPRESSION: No evidence for a hemodynamically significant stenosis. ACT 112: Negative or not required by law. Electronically signed by: Reji Leblanc M.D. 04/18/2024 3:26 PM
--- NOTE | 2024-04-18 15:32 | Ultrasound Report ---
ULTRASOUND SOFT TISSUE HEAD AND NECK. CLINICAL HISTORY: thyroid nodules TECHNIQUE: Multiple real time sonographic images of the thyroid were obtained. Comparison: Comparison is made to CTA neck 04/18/2024 FINDINGS: The right thyroid lobe measures 8.7 x 3.3 x 3.2 cm. The left thyroid lobe measures approxim ately 4.5 x 2.0 x 1.5 cm. The isthmus measures 0.2 cm. #Nodule 1. LOCATION: Right thyroid inferior pole. Measurement: 6.0 x 3.9 x 3.4 cm. COMPOSITION: 2 points: Solid or almost completely solid. ECHOGENICITY: 1 point: Hyperechoic or isoechoic. SHAPE: 0 point: [id number]. MARGIN: 0 points: Smooth or Ill-defined. ECHOGENIC FOCI: 0 points: None or large comet-tail artifacts. Overall TI-RADS Score: 3, corresponding to TI-RADS category of 3/5. #Nodule 2. LOCATION: Right thyroid inferior pole. Measurement: 2.0 x 1.7 x 1.7 cm. COMPOSITION: 2 points: Solid or almost completely solid. ECHOGENICITY: 1 point: Hyperechoic or isoechoic. SHAPE: 0 point: [id number]. MARGIN: 0 points: Smooth or Ill-defined. ECHOGENIC FOCI: 0 points: None or large comet-tail artifacts. Overall TI-RADS Score: 3, corresponding to TI-RADS category of 3/5. IMPRESSION: Multiple thyroid nodules as above. The dominant thyroid nodule in the right meets criteria for FNA bi opsy. 0 points = TR 1, benign 2 points= TR 2, not suspicious 3 points= TR 3, mildly suspicious. > 1.5 cm- follow year 1, 3, 5 years. > 2.5 cm- FNA 4-6 points= TR 4, moderately suspicious. > 1 cm- follow year 1, 2, 3, 5 years. >1.5 cm- FNA 7 or more points= TR 5, highly suspicious. > 0.5 cm- follow yearly x 5 years. > 1 cm- FNA ACT 112: Negative or not required by law. Electronically signed by: Bairon Post M.D. 04/18/2024 3:30 PM
--- NOTE | 2024-04-18 15:43 | Magnetic Resonance Report ---
MRI OF THE BRAIN WITHOUT CONTRAST CLINICAL HISTORY: Transient ischemic attack. Speech difficulties. COMPARISON STUDY: Head CT and CTA of the head performed earlier today. TECHNIQUE: Utilizing a 1.5 Nisreen magnet and dedicated coil, multiplanar, multiecho imaging of the bra in was performed without IV contrast. FINDINGS: There are no foci of restricted diffusion to suggest acute infarct. No acute intracranial h emorrhage, midline shift or mass effect is present. Ventricular system is unremarkable. Basal cistern s are patent. There are no extra-axial collections. Flow-voids for the major intracranial vessels are present. There is mild atrophy. Scattered white matter T2 hyperintense foci suggest mild small vesse l disease. No intracranial masses identified on unenhanced exam. IMPRESSION: No acute intracranial findings. ACT 112: Negative or not required by law. Electronically signed by: Reji Leblanc M.D. 04/18/2024 3:42 PM
[2024-04-18] MEDS: ROSUVASTATIN CALCIUM 5 MG TAB PO SCH (16:58)
[2024-04-19] MEDS: LEVOTHYROXINE SODIUM 25 MCG TABLET PO SCH (06:25)
[2024-04-19 07:22] LABS: Basophils # (auto) 0.07 K/uL (0.00-0.20); Eosinophils # (auto) 0.49 K/uL (0.00-0.50); Eosinophils % (auto) 6.7 %; Hematocrit (blood only) 39.9 % (37.0-47.0); Hemoglobin 13.2 g/dl (12.0-16.0); Immature Granulocytes # (auto) 0.02 K/uL (0.01-0.20); Immature Granulocytes % (auto) 0.3 %; Lymphocytes # (auto) 1.76 K/uL (1.20-3.40); Lymphocytes % (auto) 24.2 %; Mean Corpuscular Hemoglobin 27.9 pg (25.0-34.0); Mean Corpuscular Hgb Conc 33.1 g/dL (32.0-36.0); Mean Corpuscular Volume 84.4 fL (80.0-100.0); Mean Platelet Volume 9.5 fL (9.4-12.4); Monocytes # (auto) 0.67 K/uL (0.11-0.59); Monocytes % (auto) 9.2 %; Neutrophils # (auto) 4.25 K/uL (1.40-6.50); Neutrophils % (auto) 58.6 %; Platelet Count 257 K/uL (130-400); RDW Coefficient of Variation 13.2 % (11.5-14.5); Red Blood Count 4.73 M/uL (4.20-5.40); White Blood Count 7.26 K/ul (4.8-10.8)
[2024-04-19 07:26] LABS: Estimated Average Glucose 143 mg/dl; Hemoglobin A1C 6.6 % (4.5-5.6)
[2024-04-19 07:43] LABS: Chol HDL Ratio 2.3 (0-5); Creatinine Clr Calc Pharmacy 44.8 ml/min; Est GFR (African American) 69.5 ml/min; Est GFR (Non-African American) 59.9 ml/min; Potassium 3.8 mmol/L (3.5-5.1)
[2024-04-19] MEDS: CYANOCOBALAMIN (B-12) 500 MCG TABLET PO SCH (08:38)
[2024-04-19] MEDS: ASPIRIN 81 MG ECTAB PO SCH (08:39)
--- NOTE | 2024-04-19 09:12 | Neurology Consultation ---
Date of Consultation April 19, 2024 Assessment & Plan (1) TIA (transient ischemic attack): History of Present Illness Attending Physician: Mikel Sandy MD History of Present Illness S: pt this morning doing well. no speech issues. mri brain negative. CTA negative except for left P2 moderate stenosis. pt did have another similar event 2 weeks ago lasting 5 min of mumbling speech. pt without complaint this morning. 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 ED on 04/18/2024 with acute onset of difficulty speaking and feeling off balance with last known well at approximately 10 AM today.The patient reported to ED staff that she felt in her normal state of health when she woke around 8 AM this morning. Around 10 AM this morning she noticed that she was starting to have issues with her speech.She was noted to be stable on arrival to the ED. Labs including CBC and CMP were unremarkable. CT of the head and brain without contrast was read as negative for acute findings. CTA of the neck with contrast was negative for occlusion, hemodynamically significant stenosis, or dissection in the major cervical arteries. It did note numerous prominent thyroid nodules and recommended nonemergent thyroid ultrasound. CT of the head was read as negative for acute large vessel occlusion or intracranial aneurysm. It did note moderate multifocal stenosis within the left P2 segment with other vessels patent. Of note the ED staff did report that by the time the patient arrived back to her ED room from her CT scans her symptoms had essentially resolved. The ED staff did speak with the on-call [place] telestroke provider who did evaluate the patient and recommended admission with initiation of full dose aspirin, bilateral carotid Dopplers due to some stenosis of the left carotid artery, and routine TIA workup. Patient sitting in bed in no acute distress at the time of exam with her bedside, history was obtained from both. They confirm she was in her normal state of health this morning when she woke up around 8 AM. They were both outside sitting on their porch around 9:30 AM when the patient had acute onset of slurred speech/difficulty getting her words out. Both her and the patient herself noticed this, the patient was cognizant that she was having new difficulties speaking. The patient and her deny the patient having any facial droop, the patient denies any new paresthesias, unilateral weakness, changes in vision, hearing, taste, or smell, headache, or recent trauma/falls. They both confirm that the patient is back to her normal neurologic baseline at the time of my exam. She did not have her a.m. medications prior to arrival today. Denies previous history of stroke/TIA. She is a full code and her husb and is her POA. Allergies Allergy/AdvReac Type Severity Reaction Status Date / Time furosemide Allergy Mild Rash Verified 04/18/24 13:00 Sulfa (Sulfonamide Allergy Mild RASH Verified 04/18/24 13:00 Antibiotics) ondansetron [From Zofran] AdvReac Shakiness Verified 04/18/24 13:00 Home Medications Medication Instructions Recorded Confirmed Type ergocalciferol (vitamin D2) 1,250 50,000 unit PO MONTHLY 11/01/18 04/18/24 History mcg (50,000 unit) capsule (Vitamin D2) letrozole 2.5 mg tablet 2.5 mg PO DAILY 01/05/19 04/18/24 History coenzyme Q10 30 mg capsule (CoQ-10) 30 mg PO HS 04/14/19 04/18/24 History vitamins A,C,R-qray-bfoszp 2,148 2 tab PO BID 12/02/21 04/18/24 History mcg-113 mg-45 mg-17.4 mg tablet (PreserVision AREDS) cyanocobalamin (vitamin B-12) 1,000 mcg PO DAILY #30 caps 05/08/22 04/18/24 Rx 1,000 mcg capsule lisinopril 5 mg tablet 5 mg PO DAILY #90 tabs 07/08/23 04/18/24 Rx metformin 500 mg tablet,extended 500 mg PO BID #60 tabs 07/08/23 04/18/24 Rx release 24 hr levothyroxine 25 mcg tablet 25 mcg PO DAILY #90 tabs 07/27/23 04/18/24 Rx amlodipine 10 mg tablet 10 mg PO QAM #90 tabs 09/15/23 04/18/24 Rx solifenacin 10 mg tablet (Vesicare) 10 mg PO DAILY #90 tabs 01/06/24 04/18/24 Rx rosuvastatin 5 mg tablet 5 mg PO 3XWK #36 tabs 04/22/24 06/25/24 Rx estradiol 0.01% (0.1 mg/gram) 1 g vaginal DAILY PRN .iritation 04/18/24 04/18/24 History vaginal cream triamcinolone acetonide 0.05 % 1 applic topical DAILY PRN .flare 04/18/24 04/18/24 History topical ointment up Patient History Medical History Ductal carcinoma in situ (DCIS) of right breast Spinal stenosis GERD (gastroesophageal reflux disease) Hypothyroidism Diabetes mellitus, type 2 A1C 6/7% 05/2018 Hyperlipidemia Surgical History History of lumpectomy of right breast 11/23/18 H/O colonoscopy 2010 History of hysterectomy 1989 - TOTAL HYSTERECTOMY BSO History of cardiac cath 2015. CHEST TIGHTNESS-CARDIAC CATH, NO STENTS NEEDED. "NORMAL CORONARIES" PER CATH SUMMARY Family History Mother , Passed age 95 of old age No problems noted. Father , Passed in 70's of unknown No problems noted. Daughter No problems noted. Son No problems noted. Family/Other Hypertension Other No family history of adverse response to anesthesia No family history of bleeding disorder Denies family history of Ovarian cancer Prostate cancer Myocardial infarction Breast cancer Colorectal cancer Social History Smoking Status: Never smoker Second Hand Exposure: Yes; Do You Dip or Chew Tobacco: No; Hx Alcohol Use: No Hx Substance Use: No Preferred Language: Hebrew Communication Ability: Effective Visual Impairment: No Limitations Hearing Ability: Normal Director Product Development Required: No Beliefs That Will Affect Care: None and Cultural marital status: Current Living Situation: Spouse current occupational status: retired 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 Other Information That Helps Us Care for You: No Feels Safe at Home: Yes Safety Concerns: Feels Safe At This Time Childhood Exposure to Second-Hand Smoke: Yes caffeine: No during the past year weight has: remained stable Dental Care, Regularly: Yes Physical Activity Frequency: Daily Seatbelt Use: always Sunscreen Use: Yes Assistive Devices: Glasses Review of Systems Review of Systems: All systems reviewed & are unremarkable except as noted in Subjective Constitutional: as per Subjective / HPI Eyes: as per Subjective / HPI Ear, Nose, Mouth, Throat: as per Subjective / HPI Respiratory: as per Subjective / HPI Cardiovascular: as per Subjective / HPI Gastrointestinal: as per Subjective / HPI Musculoskeletal: as per Subjective / HPI Integumentary: as per Subjective / HPI Neurologic: as per Subjective / HPI Psychiatric: as per Subjective / HPI Endocrine: as per Subjective / HPI Hematologic / Lymphatic: as per Subjective / HPI Allergy / Immunological: as per Subjective / HPI Exam (Neuro) Physical Exam: HEENT: normocephalic Neuro: Mental: AOx4, fluent speech, normal comprehension, no apraxia, no L/R confusion, no neglect CN: PERRL, Full EOM, symmetric face, midline T/U/P, 5/5 SCM/traps. Motor: No abnormal movements, normal tone and bulk, 5/5 t/o bilaterally Sens: intact to touch b/l grossly Coord: intact FNT b/l DTR: 2+ sym b/l Gait: deferred. Impression: 84 yo female with transient resolved speech changes twice in 2 weeks in setting of left P2 moderate stenosis. Pt doing well currently and asymptomatic. Recommendations: 1. Standard stroke work up as planned 2. antiplatelet therapy: * DAPT (dual antiplatelet therapy): start for pts with ABCD2 score 4 or higher. Initial loading dose with ASA 325mg and Plavix 300mg (if pt has not been started), then ASA 81mg daily and Plavix 75mg daily. Continue DAPT for 21 days recommended. then monotherapy after that given her high ABCD2 score. 3. Images: TTE with bubble, 4. Permissive Hypertension for next 24 h rs. Keep SBP goal range less than 220. Avoid hypotension. Do not stop beta-zaira if on it. 6. Long-term SBP goal less than 130. 7. Plenty of hydration including IV flui d if possible (use isotonic solution) next 1-2 days. Avoid hypovolemia and hypotension. 8. Initiate DVT prevention therapy. 9. Avoid hypoglycemia, serum glucose goa l during hospitalization: 140-180. 10. Long-term HgA1c goal less than 7. 11. Start statin if not on it and no abs olute contraindication, long-term LDL goal less than 70. 12. Head of bed up 30 degrees if possibl e. 13. Stroke education by nursing and appr opriate staff. 14. Telemetry monitoring. Consider terminal superintendent cardiac monitoring, i.e. MCOT (mobile cardiac outpatient telemetry) or ICM (insertable electronic controls repairer supervisor, e.g. LINQ), if never had custodial cardiac monitoring done previously. And if found to have atrial flutter or fibrillation, should consider anticoagulation therapy if no contraindication. pt wants to go home today but it is better monitor her at least 24hrs longer and if she is doing well and echo negative, she likely can be discharged tomorrow. pt agrees. Chart reviewed I have spent more than 50% educating patient about potential diagnosis and neurological evaluation and coordinating care with patient's treatment team. Total time spent (including chart review and coordination of care): 60 min (this includes chart review). Results & Data Vital Signs (Past 12 Hours) Vital Signs Temp Pulse Pulse Resp BP Pulse Ox O2 Del Method 04/19/24 08:00 85 04/19/24 07:00 36.8 C 66 18 150/71 H 98 Room Air 04/19/24 03:00 37.0 C 59 L 18 130/70 96 Room Air 04/18/24 23:00 69 04/18/24 23:00 37.2 C 66 24 145/72 H 94 Room Air PG Care Time/CCT Total # of Minutes Spent Total Time Spent with Patient: Total time spent is greater than 50% in coordination of care (as documented) at patient's floor/unit and/or counseling patient: Coding Level of Care Code 16521 IN/OBS CONSULT LVL 4,60M Diagnoses TIA (transient ischemic attack) G45.9
--- NOTE | 2024-04-19 13:14 | Pharmacy Report ---
- Date of Service April 19, 2024 - Pharmacy CVA/TIA Medication Review Medications to Prevent Stroke handout has been added to the patients discharge packet. Antiplatelet(s) * DAPT - Aspirin 81mg daily + Clopidogrel 75mg daily x 21 days, then monotherapy Cholesterol * Rosuvastatin 5mg PO Daily * High intensity statin deferred due to age >75 DVT Prophylaxis * SCD knee Therapeutic Anticoagulation * No history of Afib/Aflutter noted Type 2 Diabetes * Patient has T2DM and patient is prescribed metformin with A1c at goal for patient's age and comorbidities, a diabetes medication with proven CVD benefit will be deferred to their outpatient provider due to familiarity with risks/benefits of such therapies. "Medications to prevent stroke" handout has already been added to the patient's discharge packet, which instructs the patient to follow up with their outpatient provider to evaluate which diabetes medication with proven CVD benefit is best for them.
[2024-04-19] MEDS: SODIUM CHLORIDE 0.9% 1,000 ML IV SCH (13:32)
[2024-04-19] MEDS: CLOPIDOGREL BISULFATE 75 MG TAB PO SCH (13:33)
--- NOTE | 2024-04-19 16:48 | XCELERA ---
[id number]
--- NOTE | 2024-04-19 18:58 | Hospitalist Progress Note ---
Date of Service April 19, 2024 Assessment & Plan (1) Stroke-like symptoms: Plan: Presented to the ED today after acute onset of slurred speech at approximately 09:30 on 04/18/24. Patient was made a stroke alert after initial evaluation by triage, per ED staff patient's symptoms were already improving by the time she was evaluated by the ED physician and CT, with symptoms nearly resolved by the time she was evaluated by [place] telestroke provider. Patient back to her neurologic baseline with symptom resolution at the time of admission Brain MRI revealed no acute intracranial findings. CT head was negative for acute findings. CTA neck with contrast was negative for occlusion, hemodynamically significant stenosis, or dissection of major cervical arteries. > It did note numerous prominent thyroid nodules and recommended nonemergent thyroid ultrasound. CTA head was read as negative for acute large vessel occlusion or intra cranial aneurysm. It did note moderate multifocal stenosis within the left P2 segment with other vessels patent. Carotid Doppler study showed no evidence for a hemodynamically significant stenosis. Thyroid ultrasound revealed multiple thyroid nodules with dominant thyroid nodule in the right meeting criteria for FNA biopsy. > Schedule close outpatient follow-up for FNA biopsy on discharge. Echocardiogram revealed EF= 55-60%, grade 1 diastolic dysfunction, no intra- arterial shunt. Lipid panel WNL. Specifically, LDL was 51. > Patient normally taking 5 mg Crestor 3 times a week. Will start daily dosing. Continue with moderate intensity dosage and defer increasing to high intensity dosage at this time given LDL of 51 (goal <70). HgbA1c 6.6%. Long-term A1c goal less than 7. Continue current diabetic regimen. Neurology consulted > Recommend DAPT with aspirin 81 mg daily and Plavix 75 mg daily. Continue DAPT for 21 days, then monotherapy after that given her high ABCD2 score. > IVF with isotonic solution to avoid hypovolemia and hypotension. NSS at 100 mL/h x 2 bags ordered. > Avoid hypoglycemia, serum glucose goal during hospitalization: [id number]. > Consider long-term cardiac monitoring, i.e. MCOT (mobile cardiac outpatient telemetry) or ICM (insertable monitoring manager), if never had long-term cardiac monitoring done previously. If found to have atrial flutter fibrillation, consider anticoagulation therapy if no contraindication. Continue inpatient monitoring today and if patient is doing well, she can likely be discharged tomorrow, 04/20/2024. (2) Type 2 diabetes mellitus: Plan: Monitor BSG ACHS, goal is [id number] Hold home metformin for now Patient is not on insulin at home, will hold basal insulin for now Will continue with sliding scale and correction factor ACHS for now Adjust regimen as needed HgbA1c 6.6 on 04/19/2024 (3) Thyroid nodule: Plan: CTA of the neck today noted numerous prominent thyroid nodules Patient has a known history of hypothyroidism TSH WNL at 0.766 Continue levothyroxine Schedule close outpatient follow-up for FNA biopsy of dominant right thyroid nodule (4) Hypertension: Plan: Stable Permissive hypertension for next 24 hours. Keep S BP goal range less than 220. Avoid hypotension. Plan Personally had a lengthy discussion with patient about TIA versus stroke, treatment plan, and symptoms to monitor for Discussed case with neurology Started Plavix Ordered IVF VTE PPx: Bilateral SCDs CODE STATUS: Full code Admission and Anticipated Discharge Date Admission Date: April 18, 2024 Subjective Patient seen and evaluated at bedside. She appears well and expresses eagerness to be discharged. However, neurology recommended continued monitoring tonight. Patient is agreeable to this. We had a lengthy discussion about TIA versus stroke, treatment changes for her TIA, and symptoms to monitor for moving forward. She had no complaints at this time. Physical Exam Physical Exam: General: No acute distress, nondiaphoretic, well-developed, well-nourished. Skin: The skin was without rashes, erythema, edema, or bruising. Cardiac: Regular rate and rhythm without murmurs gallops or rubs. Pulm: Clear to auscultation bilaterally without wheezes, rales or rhonchi. No respiratory distress. Abdominal: Positive bowel sounds x 4. Soft, nontender, without masses or organomegaly. No guarding or rebound tenderness. Neuro: A&O x3. No focal neurological deficits; no facial droop, no unilateral weakness, no slurred speech, no tremors. Results & Data Results & Data Vital Signs (Past 12 Hours) Vital Signs Temp Pulse Pulse Resp BP Pulse Ox O2 Del Method 04/19/24 15:00 36.7 C 74 18 152/86 H 97 Room Air 04/19/24 11:00 73 17 166/78 H 96 Room Air 04/19/24 08:00 85 04/19/24 07:00 36.8 C 66 18 150/71 H 98 Room Air Laboratory Results Reviewed CBC Reviewed BMP Reviewed A1c Reviewed lipid panel Diagnostic Findings Reviewed echocardiogram 04/19/2024 Interpretation summary: No prior study for comparison. Injection of contrast documented no intra-arterial shunt. Left ventricular systolic function is normal. Left ventricular ejection fraction= 55-60% There is moderate concentric left ventricular hypertrophy. Focal thickening of the basal septum with no evidence of left ventricular outflow obstruction. Grade 1 diastolic dysfunction, (abnormal relaxation pattern). There is moderate mitral annular calcification. There is mild mitral regurgitation. There is mild tricuspid regurgitation. Right ventricular systolic pressure is elevated at 30-40 mmHg. PG Care Time/CCT Total # of Minutes Spent Total Time Spent with Patient: Total time spent is greater than 50% in coordination of care (as documented) at patient's floor/unit and/or counseling patient: Coding Level of Care Code 36958 SUB INP/OBS CARE 3/50MIN Diagnoses Stroke-like symptoms R29.90 Type 2 diabetes mellitus with stage 3a chronic kidney disease, without long-term current use of insulin E11.22; N18.31 Diabetes mellitus longterm insulin use: without senior telecommunications specialist use Diabetes mellitus complication status: with kidney complications Diabetes mellitus complication detail: with chronic kidney disease Chronic kidney disease stage: stage 3 (moderate) Chronic kidney disease stage 3 subtype: stage 3a (GFR 45-59) Thyroid nodule E04.1 Primary hypertension I10 Hypertension type: primary hypertension (2) Type 2 diabetes mellitus Diabetes mellitus longterm insulin use: without senior telecommunications specialist use Diabetes mellitus complication status: with kidney complications Diabetes mellitus complication detail: with chronic kidney disease Chronic kidney disease stage: stage 3 (moderate) Chronic kidney disease stage 3 subtype: stage 3a (GFR 45-59) Qualified Code(s): E11.22 - Type 2 diabetes mellitus with diabetic chronic kidney disease; N18.31 - Chronic kidney disease, stage 3a (4) Hypertension Hypertension type: primary hypertension Qualified Code(s): I10 - Essential (primary) hypertension
[2024-04-20 03:09] VITALS: RESP 19; O2SAT 95
[2024-04-20 06:54] LABS: Basophils # (auto) 0.06 K/uL (0.00-0.20); Basophils % (auto) 0.9 %; Eosinophils # (auto) 0.49 K/uL (0.00-0.50); Eosinophils % (auto) 7.6 %; Hematocrit (blood only) 38.1 % (37.0-47.0); Hemoglobin 12.3 g/dl (12.0-16.0); Immature Granulocytes # (auto) 0.02 K/uL (0.01-0.20); Immature Granulocytes % (auto) 0.3 %; Lymphocytes % (auto) 24.9 %; Mean Corpuscular Hemoglobin 27.4 pg (25.0-34.0); Mean Corpuscular Hgb Conc 32.3 g/dL (32.0-36.0); Mean Corpuscular Volume 84.9 fL (80.0-100.0); Mean Platelet Volume 9.6 fL (9.4-12.4); Monocytes # (auto) 0.67 K/uL (0.11-0.59); Monocytes % (auto) 10.4 %; Neutrophils # (auto) 3.59 K/uL (1.40-6.50); Neutrophils % (auto) 55.9 %; Platelet Count 234 K/uL (130-400); RDW Coefficient of Variation 13.2 % (11.5-14.5); Red Blood Count 4.49 M/uL (4.20-5.40); White Blood Count 6.43 K/ul (4.8-10.8)
[2024-04-20 07:11] VITALS: BP 157/68; TEMP 98.2
[2024-04-20 07:20] LABS: BUN Creatinine Ratio 18.3 (10-20); Calcium 8.5 mg/dl (8.6-10.3); Creatinine Clr Calc Pharmacy 48.7 ml/min; Est GFR (African American) 76.7 ml/min; Est GFR (Non-African American) 66.2 ml/min
--- NOTE | 2024-04-20 07:44 | Hospitalist Progress Note ---
Date of Service April 20, 2024 Assessment & Plan (1) Stroke-like symptoms: Plan: Presented to the ED today after acute onset of slurred speech at approximately 09:30 on 04/18/24. Patient was made a stroke alert after initial evaluation by triage, per ED staff patient's symptoms were already improving by the time she was evaluated by the ED physician and CT, with symptoms nearly resolved by the time she was evaluated by [place] telestroke provider. Patient back to her neurologic baseline with symptom resolution at the time of admission Brain MRI revealed no acute intracranial findings. CT head was negative for acute findings. CTA neck with contrast was negative for occlusion, hemodynamically significant stenosis, or dissection of major cervical arteries. > It did note numerous prominent thyroid nodules and recommended nonemergent thyroid ultrasound. CTA head was read as negative for acute large vessel occlusion or intra cranial aneurysm. It did note moderate multifocal stenosis within the left P2 segment with other vessels patent. Carotid Doppler study showed no evidence for a hemodynamically significant stenosis. Thyroid ultrasound revealed multiple thyroid nodules with dominant thyroid nodule in the right meeting criteria for FNA biopsy. > Schedule close outpatient follow-up for FNA biopsy on discharge. Echocardiogram revealed EF= 55-60%, grade 1 diastolic dysfunction, no intra- arterial shunt. Lipid panel WNL. Specifically, LDL was 51. > Patient normally taking 5 mg Crestor 3 times a week. Will start daily dosing. Continue with moderate intensity dosage and defer increasing to high intensity dosage at this time given LDL of 51 (goal <70). HgbA1c 6.6%. Long-term A1c goal less than 7. Continue current diabetic regimen. Neurology consulted > Recommend DAPT with aspirin 81 mg daily and Plavix 75 mg daily. Continue DAPT for 21 days, then monotherapy after that given her high ABCD2 score. > IVF with isotonic solution to avoid hypovolemia and hypotension. NSS at 100 mL/h x 2 bags ordered. > Avoid hypoglycemia, serum glucose goal during hospitalization: [id number]. > Consider long-term cardiac monitoring, i.e. MCOT (mobile cardiac outpatient telemetry) or ICM (insertable gambling monitor), if never had long-term cardiac monitoring done previously. If found to have atrial flutter fibrillation, consider anticoagulation therapy if no contraindication. Continue inpatient monitoring today and if patient is doing well, she can likely be discharged tomorrow, 04/20/2024. 04/20 - Plavix 225mg PO x 1 NOW w/ her AM dose as do not see loading dose provided. Was given 75mg plavix w/ asa 81mg. Will give dose now and continue x21 days, then aspirin alone -Pepcid 20mg daily added for GI proph while on DAPT - Lisinopril 5mg daily resumed for BP control - twenty one dealer to assist w/ arranging for FNA thyroid nodule outpatient as well as MCOT monitoring (2) Type 2 diabetes mellitus: Plan: Monitor BSG ACHS, goal is [id number] Hold home metformin for now Patient is not on insulin at home, will hold basal insulin for now Will continue with sliding scale and correction factor ACHS for now Adjust regimen as needed HgbA1c 6.6 on 04/19/2024 (3) Thyroid nodule: Plan: CTA of the neck today noted numerous prominent thyroid nodules Patient has a known history of hypothyroidism TSH WNL at 0.766 Continue levothyroxine Schedule close outpatient follow-up for FNA biopsy of dominant right thyroid nodule (4) Hypertension: Plan: Stable Permissive hypertension for next 24 hours. Keep S BP goal range less than 220 . Avoid hypotension. Plan Personally had a lengthy discussion with patient about TIA versus stroke, treatment plan, and symptoms to monitor for Discussed case with neurology Started Plavix Ordered IVF VTE PPx: Bilateral SCDs CODE STATUS: Full code Admission and Anticipated Discharge Date Admission Date: April 18, 2024 Results & Data Results & Data Vital Signs (Past 12 Hours) Vital Signs Temp Pulse Pulse Resp BP Pulse Ox O2 Del Method 04/20/24 07:07 36.8 C 51 L 19 157/68 H 95 Room Air 04/20/24 03:08 36.9 C 62 19 150/74 H 95 Room Air 04/19/24 23:06 37.0 C 69 18 159/74 H 94 Room Air 04/19/24 22:00 72 PG Care Time/CCT Total # of Minutes Spent Total Time Spent with Patient: Total time spent is greater than 50% in coordination of care (as documented) at patient's floor/unit and/or counseling patient: Coding Diagnoses Stroke-like symptoms R29.90 Type 2 diabetes mellitus with stage 3a chronic kidney disease, without long-term current use of insulin E11.22; N18.31 Diabetes mellitus senior living insulin use: without superintendent container terminal use Diabetes mellitus complication status: with kidney complications Diabetes mellitus complication detail: with chronic kidney disease Chronic kidney disease stage: stage 3 (moderate) Chronic kidney disease stage 3 subtype: stage 3a (GFR 45-59) Thyroid nodule E04.1 Primary hypertension I10 Hypertension type: primary hypertension (2) Type 2 diabetes mellitus Diabetes mellitus superintendent container terminal insulin use: without superintendent container terminal use Diabetes mellitus complication status: with kidney complications Diabetes mellitus complication detail: with chronic kidney disease Chronic kidney disease stage: stage 3 (moderate) Chronic kidney disease stage 3 subtype: stage 3a (GFR 45-59) Qualified Code(s): E11.22 - Type 2 diabetes mellitus with diabetic chronic kidney disease; N18.31 - Chronic kidney disease, stage 3a (4) Hypertension Hypertension type: primary hypertension Qualified Code(s): I10 - Essential (primary) hypertension
[2024-04-20] MEDS: CLOPIDOGREL BISULFATE 75 MG TAB PO ONE (07:56)
[2024-04-20] MEDS: FAMOTIDINE 20 MG TAB PO SCH (08:14)
[2024-04-20] MEDS: lisinopril 5 MG TAB PO SCH (08:14)
--- NOTE | 2024-04-20 08:59 | Neurology Progress Note ---
Date of Service April 20, 2024 Assessment & Plan (1) TIA (transient ischemic attack): Admission and Anticipated Discharge Date Admission Date: April 18, 2024 Subjective pt feeling well. no issues. echo negative. wants to go home. Results & Data Vital Signs (Past 12 Hours) Vital Signs Temp Pulse Pulse Resp BP Pulse Ox O2 Del Method 04/20/24 08:55 59 L 04/20/24 07:07 36.8 C 51 L 19 157/68 H 95 Room Air 04/20/24 03:08 36.9 C 62 19 150/74 H 95 Room Air 04/19/24 23:06 37.0 C 69 18 159/74 H 94 Room Air 04/19/24 22:00 72 Exam (Neuro) Physical Exam: Neuro: Mental: AOx4, fluent speech, normal comprehension, no apraxia, no neglect CN: PERRL, Full EOM, symmetric face, Motor: No abnormal movements Coord: intact Impression: 84 yo female with transient resolved speech change, likely TIA event. doing well. Recommendations: pt stable and work up negative. DAPT as recommended strict stroke risk modifications. ok for discharge. f/u with PCP. Chart reviewed I have spent more than 50% educating patient about potential diagnosis and neurological evaluation and coordinating care with patient's treatment team. Total time spent (including chart review and coordination of care): 40 min (this includes chart review). PG Care Time/CCT Total # of Minutes Spent Total Time Spent with Patient: Total time spent is greater than 50% in coordination of care (as documented) at patient's floor/unit and/or counseling patient: Coding Level of Care Code 96259 SUB INP/OBS CARE 2/35MIN Diagnoses TIA (transient ischemic attack) G45.9
--- NOTE | 2024-04-20 10:58 | Discharge Summary ---
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 Around 10 AM this morning she noticed that she was starting to have issues with her speech.She was noted to be stable on arrival to the ED. Labs including CBC and CMP were unremarkable. CT of the head and brain without contrast was read as negative for acute findings. CTA of the neck with contrast was negative for occlusion, hemodynamically significant stenosis, or dissection in the major cervical arteries. It did note numerous prominent thyroid nodules and recommended nonemergent thyroid ultrasound. CT of the head was read as neg ative for acute large vessel occlusion or intracranial aneurysm. It did note moderate multifocal stenosis within the left P2 segment with other vessels patent. Of note the ED staff did report that by the time the patient arrived back to her ED room from her CT scans her symptoms had essentially resolved. The ED staff did speak with the on-call [facility] telestroke provider who did evaluate the patient and recommended admission with initiation of full dose aspirin, bilateral carotid Dopplers due to some stenosis of the left carotid artery, and routine TIA workup. Patient sitting in bed in no acute distress at the time of exam with her bedside, history was obtained from both. They confirm she was in her normal state of health this morning when she woke up around 8 AM. They were b ot outside sitting on their porch around 9:30 AM when the patient had acute onset of slurred speech/difficulty getting her words out. Both her and the patient herself noticed this, the patient was cognizant that she was having new difficulties speaking. The patient and her deny the patient having any facial droop, the patient denies any new paresthesias, unilateral weakness, changes in vision, hearing, taste, or smell, headache, or recent trauma/falls. They both confirm that the patient is back to her normal neurologic baseline at the time of my exam. She did not have her a.m. medications prior to arrival today. Denies previous history of stroke/TIA. She is a full code and her is her POA. Please refer to Dr. Burkett' attestation for any changes to the treatment plan. Admission Exam Per Admitting Provider Physical Exam: General: In no acute distress, stated age, well-nourished, good hygiene HEENT: Normocephalic, atraumatic, no scleral icterus, pupils around round, symmetrical, and reactive to light, moist mucus membranes, +thyromegaly, trachea midline, no thyromegaly Chest/Pulm: No respiratory distress, symmetrical chest expansion, clear breath sounds throughout Cardiac: RRR, no murmurs noted Abdomen: Negative for ascites and bruising, normoactive bowel sounds, soft, non- tender to palpation throughout Musculoskeletal: Symmetrical and without signs of acute trauma, upper and lower extremities with full ROM, no atrophy, spasticity, or flaccidity Extremities: Radial, dorsalis pedis, and posterior tibial pulses are intact and symmetrical, no edema noted in the BL LE's Skin: Warm, dry, no rashes , lesions, or scars noted Neuro: Alert and oriented to person, place, month, year, and president, no focal defects, CN II-XII tested and intact, Negative cerebellar and pronator drift testing in the bilateral upper extremities, no tremors noted Psych: No acute distress, calm and cooperative during the exam Principal Diagnosis TIA Discharge Exam General: 84yo female sitting up in bed, ready for discharge, in room Head atraumatic, normocephalic, +thyromegaly Resp: even/unlabored, no w/c/r, on room air CV: RRR, faint systolic murmur, no pitting edema/calf tenderness GI: +BS, soft/NT : no sanders MSK/Neuro: nonfocal, answering questions appropriately, no slurred speech/facial droop, CN intact grossly, no confusion Psych: AOx3, cooperative with exam Discharge Data Allergies Allergy/AdvReac Type Severity Reaction Status Date / Time furosemide Allergy Mild Rash Verified 04/18/24 13:00 Sulfa (Sulfonamide Allergy Mild RASH Verified 04/18/24 13:00 Antibiotics) ondansetron [From Zofran] AdvReac Shakiness Verified 04/18/24 13:00 Consultations 04/18/24 12:21 ED Decision to Admit Stat 04/18/24 12:24 Consult Neurology Routine Ordered Studies Chest X-Ray 04/18/24 11:19 XR chest 1V portable CLINICAL HISTORY: neuro deficit, acute stroke suspected TECHNIQUE: Single frontal radiograph of the chest was obtained. Comparison: Comparison is made to chest radiograph 11/25/2021 FINDINGS: No lines and tubes are seen. Calcified aortic knob is seen. The lungs are clear. No evidence of pleural effusion or pneumothorax. IMPRESSION: No acute chest disease. ACT 112: Negative or not required by law. Electronically signed by: Bairon Post M.D. 04/18/2024 11:[address] 04/18/24 11:19 CT OF THE HEAD WITHOUT CONTRAST CLINICAL HISTORY: neuro deficit, acute stroke suspected. Speech difficulties. COMPARISON STUDY: None. TECHNIQUE: Helical axial images of the head were obtained without IV contrast. Automated exposure control was utilized for the study. A dose lowering technique was utilized adhering to the principles of ALARA. FINDINGS: No acute intracranial hemorrhage, midline shift or mass effect is present. The ventricular system is unremarkable. The basal cisterns are patent. No extra-axial collections are present. There are no findings to suggest acute dural sinus thrombosis or acute territorial infarct. No significant calvarial abnormalities are present. Visualized portions of the sinuses and mastoid air cells are clear. IMPRESSION: No acute intracranial findings. ACT 112: Negative or not required by law. Electronically signed by: Reji Leblanc M.D. 04/18/2024 11:34 AM Head CTA 04/18/24 11:19 CTA ANGIOGRAPHY OF THE HEAD CLINICAL HISTORY: neuro deficit, acute stroke suspected COMPARISON STUDY: No previous studies for comparison. TECHNIQUE: Helical axial images of the head were obtained following uneventful intravenous administration of 120 cc of Optiray. Sagittal and coronal reconstructions were viewed as well as maximal intensity projections on an independent 3-D workstation. Automated exposure control was utilized for the study. A dose lowering technique was utilized adhering to the principles of ALARA. CT DOSE: 1109.83 mGy.cm FINDINGS: No acute intracranial hemorrhage is identified on the head CT which will be reported separately. Ventricular system is unremarkable. Basal cisterns are patent. There are no extra-axial collections. The bilateral M1, M2, A1 and A2 segments are patent. There is mild calcified plaque within the cavernous carotids without stenosis. There is moderate irregularity of the left P2 segment with moderate multifocal stenoses. No vessel occlusion is identified on this examination. Major dural sinuses are patent. IMPRESSION: 1. No large vessel occlusion. No intracranial aneurysm. 2. Moderate multifocal stenoses within the left P2 segment. Vessels patent. ACT 112: Negative or not required by law. Electronically signed by: Reji Leblanc M.D. 04/18/2024 11:50 AM Neck CTA 04/18/24 11:19 CT angio neck with con CLINICAL HISTORY: neuro deficit, acute stroke suspected TECHNIQUE: CT angiography of the neck was performed following intravenous administration of iodinated contrast. Coronal and sagittal MIPS were obtained from the axial data set and were submitted for review. Automated dose lowering techniques and/or adjustment according to patient size were utilized for this examination. All measurements were calculated based on NASCET criteria. Comparison: None available at the time of this dictation. FINDINGS: Numerous thyroid nodules measure up to 32 mm in diameter. CTA Neck: A 3 vessel aortic arch is shown. There is no significant atherosclerotic plaque in the aortic arch or the origins of the innominate, left common carotid, and left subclavian arteries. There is mild calcified atherosclerotic plaque at the bifurcation of the bilateral common carotid arteries without hemodynamically significant flow stenosis. There is no dissection present. The left vertebral artery is dominant. IMPRESSION: No occlusion, hemodynamically significant stenosis, or dissection in the major cervical arteries. Assessment of stenosis of the internal carotid arteries is based on NASCET criteria. ACT 112: Negative or not required by law. Electronically signed by: Bairon Post M.D. 04/18/2024 11:42 AM Carotid Doppler Study 04/18/24 12:22 CAROTID ARTERY ULTRASOUND CLINICAL HISTORY: Transient ischemic attack. COMPARISON STUDY: CTA of the neck April 18, 2024. TECHNIQUE: Real-time, grayscale, and color Doppler sonography of the carotid and vertebral arteries was performed. Images were viewed in the transverse and longitudinal planes. FINDINGS: There is moderate atherosclerotic plaque. Velocity measurements are listed below. COMMON CAROTID PEAK SYSTOLIC VELOCITY (CM/S): RIGHT 83 LEFT 91 ICA PEAK SYSTOLIC VELOCITY (CM/S): RIGHT 64 LEFT 74 Systolic ratios between the internal to common carotid arteries are normal. Antegrade flow is seen in the vertebral arteries. The external carotid arteries are patent. IMPRESSION: No evidence for a hemodynamically significant stenosis. ACT 112: Negative or not required by law. Electronically signed by: Reji Leblanc M.D. 04/18/2024 3:26 PM Thyroid Ultrasound 04/18/24 12:22 ULTRASOUND SOFT TISSUE HEAD AND NECK. CLINICAL HISTORY: thyroid nodules TECHNIQUE: Multiple real time sonographic images of the thyroid were obtained. Comparison: Comparison is made to CTA neck 04/18/2024 FINDINGS: The right thyroid lobe measures 8.7 x 3.3 x 3.2 cm. The left thyroid lobe measures approximately 4.5 x 2.0 x 1.5 cm. The isthmus measures 0.2 cm. #Nodule 1. LOCATION: Right thyroid inferior pole. Measurement: 6.0 x 3.9 x 3.4 cm. COMPOSITION: 2 points: Solid or almost completely solid. ECHOGENICITY: 1 point: Hyperechoic or isoechoic. SHAPE: 0 point: [id number]. MARGIN: 0 points: Smooth or Ill-defined. ECHOGENIC FOCI: 0 points: None or large comet-tail artifacts. Overall TI-RADS Score: 3, corresponding to TI-RADS category of 3/5. #Nodule 2. LOCATION: Right thyroid inferior pole. Measurement: 2.0 x 1.7 x 1.7 cm. COMPOSITION: 2 points: Solid or almost completely solid. ECHOGENICITY: 1 point: Hyperechoic or isoechoic. SHAPE: 0 point: [id number]. MARGIN: 0 points: Smooth or Ill-defined. ECHOGENIC FOCI: 0 points: None or large comet-tail artifacts. Overall TI-RADS Score: 3, corresponding to TI-RADS category of 3/5. IMPRESSION: Multiple thyroid nodules as above. The dominant thyroid nodule in the right meets criteria for FNA biopsy. 0 points = TR 1, benign 2 points= TR 2, not suspicious 3 points= TR 3, mildly suspicious. > 1.5 cm- follow year 1, 3, 5 years. > 2.5 cm- FNA 4-6 points= TR 4, moderately suspicious. > 1 cm- follow year 1, 2, 3, 5 years. >1.5 cm- FNA 7 or more points= TR 5, highly suspicious. > 0.5 cm- follow yearly x 5 years. > 1 cm- FNA ACT 112: Negative or not required by law. Electronically signed by: Bairon Post M.D. 04/18/2024 3:30 PM Brain MRI 04/18/24 12:38 MRI OF THE BRAIN WITHOUT CONTRAST CLINICAL HISTORY: Transient ischemic attack. Speech difficulties. COMPARISON STUDY: Head CT and CTA of the head performed earlier today. TECHNIQUE: Utilizing a 1.5 Nisreen magnet and dedicated coil, multiplanar, multiecho imaging of the brain was performed without IV contrast. FINDINGS: There are no foci of restricted diffusion to suggest acute infarct. No acute intracranial hemorrhage, midline shift or mass effect is present. Ventricular system is unremarkable. Basal cisterns are patent. There are no extra-axial collections. Flow-voids for the major intracranial vessels are present. There is mild atrophy. Scattered white matter T2 hyperintense foci suggest mild small vessel disease. No intracranial masses identified on u nenhanced exam. IMPRESSION: No acute intracranial findings. ACT 112: Negative or not required by law. Electronically signed by: Reji Leblanc M.D. 04/18/2024 3:42 PM ECHOCARDIOGRAM 04/19/2024 No prior study for comparison. Injection of contrast documented NO interatrial shunt. LV systolic function is normal. LV EF 55-60%. Moderate concentric LVH. Focal thickening of basal septum with NO evidence of LVOT Grade I diastolic dysfunction Moderate mitral annular calcification Mild mitral regurgitation Mild Tricuspid regurgitation RVSP is elevated at 30-40mmHg Hospital Course (1) Stroke-like symptoms: Presented to the ED today after acute onset of slurred speech at approximately 09:30 on 04/18/24. Patient was made a stroke alert after initial evaluation by triage, per ED staff patient's symptoms were already improving by the time she was evaluated by the ED physician and CT, with symptoms nearly resolved by the time she was evaluated by [facility] telestroke provider. Patient back to her neurologic baseline with symptom resolution at the time of admission Brain MRI revealed no acute intracranial findings. CT head was negative for acute findings. CTA neck with contrast was negative for occlusion, hemodynamically significant stenosis, or dissection of major cervical arteries. > It did note numerous prominent thyroid nodules and recommended nonemergent thyroid ultrasound. CTA head was read as negative for acute large vessel occlusion or intra cranial aneurysm. It did note moderate multifocal stenosis within the left P2 segment with other vessels patent. Carotid Doppler study showed no evidence for a hemodynamically significant stenosis. Echocardiogram revealed EF= 55-60%, grade 1 diastolic dysfunction, NO intra- arterial shunt. Lipid panel WNL. Specifically, LDL was 51. > Patient normally taking 5 mg Crestor 3 times a week. Will start daily dosing. Continue with moderate intensity dosage and defer increasing to high intensity dosage at this time given LDL of 51 (goal <70). HgbA1c 6.6%. Long-term A1c goal less than 7. Continue current diabetic regimen. Neurology consulted > Recommend DAPT with aspirin 81 mg daily and Plavix 75 mg daily. Continue DAPT for 21 days, then monotherapy after that given her high ABCD2 score. > IVF with isotonic solution to avoid hypovolemia and hypotension. NSS at 100 mL/h x 2 bags ordered. > Avoid hypoglycemia, serum glucose goal during hospitalization: [id number]. > Consider long-term cardiac monitoring, i.e. MCOT (mobile cardiac outpatient telemetry) or ICM (insertable cafeteria monitor), if never had long-term cardiac monitoring done previously. If found to have atrial flutter fibrillation, cons ider anticoagulation therapy if no contraindication. 04/20 was given additional 225mg plavix w/ am 75mg dose as did not appear to getting loading plavix dose. To continue DAPT x 21 days, then aspirin 81mg daily alone (not on at baseline). Pepcid added for GI proph while on DAPT. Lisinopril resumed 5mg daily, amlodipine in AM 04/21 to prevent any hypotension. Encouraged hydration. paster supervisor arranging for f/u FNA of RIGHT thyroid nodule as well as MCOT monitoring to send to patient's house -->of note, TSH wnl on admission, can consider sending additional thyroid testing in outpt f/u or wait for FNA as noted on thyroid US w/ multiple thyroid nodules. (2) Type 2 diabetes mellitus: A1c 6.6 w/ goal <7. Continue home metformin BID, consider increasing in f/u outpatient. SSI while inpatient acceptable and can resume metformin at dc (3) Thyroid nodule: CTA of the neck noted numerous nodules, known hx hypothyroidism on 25mcg daily. TSH wnl on admission at 0.766 Thryoid US noting FNA indicated for dominant R sided nodule, paster supervisor arranging f/u at dc (4) Hypertension: Stable, permissive HTN on admission given above, no significant hypotension and IVF continued. BP stable and lisinopril 5mg resumed AM 04/20 and can resume home amlodipine tomorrow, BP 157/68 prior to dc Plan discharged home with on DAPT x 21 days, then to continue aspirin alone MCOT monitor outpatient FNA biopsy to be arranged at discharge by CM Total Time Total Time Spent Total Time Spent (In Minutes): 40 Discharge Plan Discharge Items Patient Disposition: Home - Self-Care Reason For Visit: TIA Discharge Diagnosis: TIA Goals: You have been hospitalized for an acute medical problem. During your stay at [facility], we have made an effort to correct the problem that brought you to the hospital while keeping you as comfortable as possible. Medications were used to bring your condition under control and your discharge instructions will include directions for any medications you should take after leaving the hospital. Please make sure you see your Primary Care Provider as part of your follow up plan. Activity: As commented below Non-emergency contact: Primary Care Provider and Neurologist Call non-emergency contact if: you have any medication questions, your symptoms worsen, your pain is not controlled and you have a fever Follow-up/Referrals: Jeff Munson MD [Primary Care Provider] - 05/03/24 11:20 am Diet: Carb Consistent or DM2 and Heart Healthy Addtl Attending Provider Instructions: You have been hospitalized for concerns for a stroke however imaging was negative for acute stroke. Neurology was consulted and this is termed a "TIA" transient ischemic attack and you have been given aspirin and plavix and are to continue both for 21 days (through the 10 of May) and then continue aspirin alone. You should continue to stay well hydrated, continue your diabetes medication and crestor 5mg. We have arranged for cardiac monitoring that will be sent to your house to evaluate for any arrythmia and if noted you may need those medications changed but have been without any issues on the cafeteria monitor at this time. You did have multiple thyroid nodules and do meet criteria for biopsy and this is being arranged by the nurse navigator at discharge. Please follow up with primary care in 7-10 days. Please return to ER with any return/worsening symptoms or any other symptoms concerning for you. It has been a pleasure being a part of the medical team providing for you while you have been in the hospital. Take care! Addtl Wound Nurse Provider Instructions: Risk Factors for Stroke: You can reduce your chances of stroke by working with your medical provider to adopt a healthy lifestyle. Some specific ways to lower your chance of stroke are: * If you are a smoker, now is the time to stop smoking cigarettes * If you are diabetic, improve the control of your blood sugars * Avoid excessive amounts of alcohol * Control high blood pressure * Lose weight if you are overweight * Be sure to lead an active lifestyle * Eat a healthy diet low in salt, cholesterol and fat You should know about other risk factors for stroke that you are unable to control. These include: * Age 55 years or older * Male gender * Certain racial groups: , or / * Family History of Stroke, Mini stroke or Heart Attack * Sickle Cell Disease Follow Up: It is important for you to keep your follow up appointments with your medical provider. Who to Call and When: Medical Emergencies: Call 911 immediately if you experience any of the following warning signs and symptoms of Stroke: * Sudden numbness or weakness of the face, arm or leg, especially on one side of the body * Sudden confusion, trouble speaking or understanding * Sudden trouble seeing in one or both eyes * Sudden trouble walking, dizziness, loss of balance or coordination * Sudden severe headache with no cause Do not delay calling 911 if you experience any warning signs or symptoms of a stroke. Delay in seeking medical attention may affect what treatments can be given to you. . Pending Studies at Discharge: No Stand-Alone Forms: [facility], Smoking Cessation, Medications to Prevent Stroke Medications and DC Order Prescriptions: New clopidogrel 75 mg Tablet 75 mg PO QAM Qty: 20 0RF aspirin 81 mg Tablet,Delayed Release (Dr/Ec) 81 mg PO DAILY Qty: 30 3RF famotidine 20 mg Tablet 20 mg PO QAM Qty: 30 0RF Continued letrozole 2.5 mg tablet 2.5 mg PO DAILY Patient Comments: to be started after completion of radiation therapy PreserVision AREDS 7,160 unit- 113 mg-100 unit tablet 2 tab PO BID Rx Instructions: administer with AM and PM meals cyanocobalamin (vitamin B-12) 1,000 mcg capsule 1,000 mcg PO DAILY Qty: 30 0RF lisinopril 5 mg tablet 5 mg PO DAILY Qty: 90 3RF metformin 500 mg tablet extended release 24 hr 500 mg PO BID Qty: 60 5RF levothyroxine 25 mcg tablet 25 mcg PO DAILY Qty: 90 3RF amlodipine 10 mg tablet 10 mg PO QAM Qty: 90 3RF solifenacin [Vesicare] 10 mg tablet 10 mg PO DAILY Qty: 90 3RF rosuvastatin 5 mg tablet 5 mg PO 3XWK Qty: 36 1RF ergocalciferol (vitamin D2) [Vitamin D2] 50,000 unit Capsule 50,000 unit PO MONTHLY Rx Instructions: BEGINNING coenzyme Q10 [CoQ-10] 30 mg capsule 30 mg PO HS estradiol 0.01 % (0.1 mg/gram) cream 1 g vaginal DAILY PRN (Reason: .iritation) Rx Instructions: apply topically at bedtime to external vaginal area triamcinolone acetonide 0.05 % ointment 1 applic topical DAILY PRN (Reason: .flare up) Discharge Orders: Discharge Order (Routine); Ordered 04/20/24 Ordered By: Lorrie Nelson/Other Patient Handouts: Clopidogrel Oral Tablet, Managing Type 2 Diabetes Admission Data Admit Date/Time: 04/18/24 12:30 Attending Provider: Mikel Sandy Admit Provider: Kai Burkett Primary Care Provider: Jeff Munson V. Other Providers: Kai Burkett; Ronald Lewis Other Interventions: Discharge Summary Assessment (RN) Last Done: 04/20/24 11:19 Coding Level of Care Code 08699 INP/OBS DISCH >30 MIN Diagnoses Stroke-like symptoms R29.90 Type 2 diabetes mellitus with stage 3a chronic kidney disease, without long-term current use of insulin E11.22; N18.31 Chronic kidney disease stage: stage 3 (moderate) Chronic kidney disease stage 3 subtype: stage 3a (GFR 45-59) Diabetes mellitus complication detail: with chronic kidney disease Diabetes mellitus complication status: with kidney complications Diabetes mellitus custodial insulin use: without termite treater helper use Thyroid nodule E04.1 Primary hypertension I10 Hypertension type: primary hypertension
[2024-04-20] MEDS ORDERED: STROKE PATIENT DISCHARGE STA (11:05)
[2024-04-20 11:20] VITALS: PULSE 51
--- NOTE | 2024-04-24 10:01 | Pharmacy Report ---
Pharmacist Stroke Counseling - Date of Service April 24, 2024 - Scope: Pharmacy has been consulted to provide medication discharge counseling for this patient admitted with transient ischemic attack as per the Pharmacist Discharge Counseling for Stroke Patients Protocol. - Medications on Discharge: Home Medications Medication Instructions Recorded Confirmed ergocalciferol (vitamin D2) 1,250 50,000 unit PO MONTHLY 11/01/18 04/18/24 mcg (50,000 unit) capsule (Vitamin D2) letrozole 2.5 mg tablet 2.5 mg PO DAILY 01/05/19 04/18/24 coenzyme Q10 30 mg capsule (CoQ-10) 30 mg PO HS 04/14/19 04/18/24 vitamins A,C,E-yjdi-niyvov 2,148 2 tab PO BID 12/02/21 04/18/24 mcg-113 mg-45 mg-17.4 mg tablet (PreserVision AREDS) estradiol 0.01% (0.1 mg/gram) 1 g vaginal DAILY PRN .iritation 04/18/24 04/18/24 vaginal cream triamcinolone acetonide 0.05 % 1 applic topical DAILY PRN .flare 04/18/24 04/18/24 topical ointment up New Rx's Medication Instructions Recorded cyanocobalamin (vitamin B-12) 1,000 mcg PO DAILY #30 caps 05/08/22 1,000 mcg capsule lisinopril 5 mg tablet 5 mg PO DAILY #90 tabs 07/08/23 metformin 500 mg tablet,extended 500 mg PO BID #60 tabs 07/08/23 release 24 hr levothyroxine 25 mcg tablet 25 mcg PO DAILY #90 tabs 07/27/23 amlodipine 10 mg tablet 10 mg PO QAM #90 tabs 09/15/23 solifenacin 10 mg tablet (Vesicare) 10 mg PO DAILY #90 tabs 01/06/24 rosuvastatin 5 mg tablet 5 mg PO 3XWK #36 tabs 02/14/24 aspirin 81 mg tablet,delayed 81 mg PO DAILY #30 tabs 04/20/24 release clopidogrel 75 mg tablet 75 mg PO QAM #20 tabs 04/20/24 famotidine 20 mg tablet 20 mg PO QAM #30 tabs 04/20/24 - Action: The above medications, specifically ones for stroke treatment/prophylaxis, have been reviewed in detail with the patient and/or patient merchandising representative(s) prior to discharge. This includes indication, common adverse reactions, drug interactions, and medication administration. Medication counseling has been employed using the teach-back method to ensure understanding. - Outcome: The patient and/or patient merchandising representative(s) have demonstrated understanding of the medications. Additional comments: * Patient confirms that medications were picked up from pharmacy (bottles in front of patient at time of phone interview) * Patient aware of plan to discontinue clopidogrel after bottle is complete * No obvious barriers to medication compliance identified during interview Thank you for allowing pharmacy to be involved in the care of this patient. Please call [phone] with any additional questions
== END 2024-04-20 11:49 | disposition home or self-care (01) ==
LOC: ED 11:11 → EDINP 11:11 → SUATTDRO 12:30 → 2E 15:41

== ENCOUNTER 2025-07-31 10:42 | Observation (INO) ==
--- NOTE | 2025-07-31 11:04 | Emergency Department Note ---
Impression & Plan Stroke-like symptoms, Hypertension, Aphasia ED Provider Note NAME: CLARISSA ANAYA AGE: 85 SEX: F : 1940 ARRIVES VIA: Ambulance INFORMANT: Patient ED PROVIDER(S): Chance Frazier MD CHIEF COMPLAINT: Acute confusion PLAN: Disposition: Admit MEDICAL DECISION MAKING: The patient is a pleasant 85-year-old woman with a past medical history of CKD, type 2 diabetes, hypertension, hyperlipidemia, spinal stenosis of lumbar region, LVH, mitral stenosis, gait disturbance who presents to the emergency department via EMS and then accompanied her for evaluation of acute change in mental status with last known well at approximately 10:30 AM. Patient's reports that she woke up in her normal state of health and mental status and they had conversations. Patient did her normal morning exercises. However as they went to prepare breakfast the patient stood her walker confused repeating the phrase "it is not right, it is not right" however the patient could not elaborate. When asked to say her 's name her reports that she could not. PSG per EMS was within normal limits. On arrival to emergency department patient is no distress, afebrile blood pressure 170/60s. She appears clinically dry. Of note, per initial nursing assessment the patient was unable to state her name and date of . However upon my assessment moments later the patient answered immediately and appropriately her name and birthday and where she was. It appeared that her symptoms may have resolved completely. However did subsequently arrive to the bedside and while initially speaking fluently when asked to say her 's last name began to exhibit garbled speech. A stroke alert was activated. Case was discussed with [facility] telestroke neurology, Dr. Bardales. Appreciate consultation and assessment via telestroke monitor. CT of the head and CTA of the head and neck were negative for ICH, ischemia or severe narrowing occlusion of large vessels. Given the patient was within 3 hours for consideration of TNK this possibility was considered. However it was then clarified that the patient actually had spine surgery, anterior lumbar discectomy, and mid May of this year. Thus, given the patient had spinal surgery within 3 months this was considered a contraindication and consideration of TNK was discontinued. Recommends low-dose aspirin and Plavix. Consultation note will be finalized. WBC, H/H and platelets within normal limits. Chemistry without metabolic acidosis. Electrolytes without significant normality. Magnesium is 1.7 with IV repletion initiated for neuroprotection. LFTs unremarkable. High-sensitivity troponin 5.8, within normal limits. Lipase is normal. TSH within normal limits. Dr. Chatman, admitting resident with Dr. Tavarez [facility] hospitalist, to evaluate the patient for admission. Further management per admitting team. Triage Nursing notes reviewed and agree them. Prior/external medical records reviewed Vital Signs: reviewed Differential diagnosis: Infection, dehydration, metabolic abnormality, hypo/hyperglycemia, electrolyte disturbance, anemia, hypoxia, cardiac sources, intracerebral event, toxicologic, neurologic, as well as other pathologies. ER treatment provided: See below. Diagnostics interpreted by me: ECG: Normal sinus rhythm, 83 bpm, no ectopy, nonspecific ST and T wave abnormality, no overt ST elevation or depression, QTc 432, QRS 72. Cardiac Monitoring: An order for continuous cardiac monitoring was placed and demonstrated normal sinus rhythm, 83 bpm, no ectopy. Laboratory studies: See below Imaging studies: See below Consultation(s): Dr. Chatman, admitting resident with [facility] hospitalist HPI: Per MDM. ROS: See above HPI for pertinent positives & negatives. A total of 10 systems reviewed and were otherwise negative. VITALS:See Below PHYSICAL EXAMINATION: GENERAL: Awake, alert, in no distress HENT: Normocephalic, atraumatic. Oropharynx with dry mucous membranes and otherwise unremarkable. EYES: Normal conjunctiva. Sclera non-icteric. EOMI. No nystamgus. PEARRL. NECK: Supple. No nuchal rigidity. FROM. No JVD. RESPIRATORY: Clear to auscultation. CARDIAC: Regular rate, normal rhythm. Extremities warm and well perfused. Pulses equal. ABDOMEN: Soft, non-distended. No tenderness to palpation. No rebound or guarding. No masses. MUSCULOSKELETAL: Chest examination reveals no tenderness. The back is symmetrical on inspection without obvious abnormality. There is no CVA tenderness to palpation. No joint edema. LOWER EXTREMITIES: Calves are equal size bilaterally and non-tender. No edema. No discoloration. NEURO: Expressive aphasia per HPI. Otherwise, cranial nerves II-XII grossly intact. 5/5 strength and SILT x 4 extremities. Intact etxvgy-my-lqvy. SKIN: No rash or jaundice noted. Chance Frazier MD Past Med/Surg History Problem List (Updated 08/01/25 @ 01:09 by Chance Frazier MD) Aphasia (Acute) Hypertension (Acute) Stroke-like symptoms (Acute) Confusion with nonfocal neurological examination Greater trochanteric bursitis of left hip S/P lumbar and lumbosacral fusion by anterior technique (06/08/25) Robotic Assisted L3-L4, L4-L5 Oblique Lumbar Interbody Fusion with Posterior Instrumentation with Spinal Cord Monitoring - Kam Sweet MD Lumbar Levels L3-L4, L4-L5 Anterior Spinal Exposure, Discectomy and Arthrodesis - Matti Vernon DO Gait disturbance History of breast cancer Anemia Mitral stenosis Echo 03/2025: Mild mitral stenosis. Severe posterior mitral annular calcification. S/P lumbar fusion Anemia in chronic kidney disease LVH (left ventricular hypertrophy) Scoliosis of lumbar region due to degenerative disease of spine in adult (Chronic) Spinal stenosis of lumbar region (Chronic) Multinodular goiter (nontoxic) (Chronic) Tremor of both hands (Chronic) Chronic kidney disease, stage 3 (Chronic) Type 2 diabetes mellitus (Chronic) Hyperlipidemia Osteoarthritis Hypertension (Chronic) Medical History Thyroid nodule Lumbosacral spondylosis Postmenopausal state Spondylolisthesis of lumbar region Direct hyperbilirubinemia Ecchymosis Pulmonary hypertension Echo 03/2025: Mild pulmonary hypertension. Estimated RVSP 39 mmHg. Chronic sinusitis Generalized weakness Chronic fatigue Hx of transient ischemic attack (TIA) 03/2024 + 03/2025 Follows with [facility] Neurology Reason for Plavix Chronic kidney disease, stage [address] 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 Daughter No problems noted. Son No problems noted. Family/Other Hypertension Other No family history of adverse response to anesthesia No family history of bleeding disorder Denies family history of Ovarian cancer Prostate cancer Myocardial infarction Breast cancer Colorectal cancer Social History Smoking Status: Never smoker Tobacco Type: Declines Second Hand Exposure: No; Do You Dip or Chew Tobacco: No; Hx Alcohol Use: No Hx Substance Use: No Preferred Language: Greenlandic Communication Ability: Effective Visual Impairment: No Limitations Hearing Ability: Normal Shorthand Reporter Required: No Beliefs That Will Affect Care: Adventism marital status: Current Living Situation: Spouse Current Living Situation Comment: home with current occupational status: retired 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 How many Children do You have: 2 Feels Safe at Home: Yes Childhood Exposure to Second-Hand Smoke: Yes Diet: diabetic caffeine: No during the past year weight has: remained stable Dental Care, Regularly: Yes Physical Activity Frequency: Daily Seatbelt Use: always Sunscreen Use: Yes Assistive Devices: Cane and Walker Allergies Allergies Allergy/AdvReac Type Severity Reaction Status Date / Time furosemide Allergy Mild Rash Verified 07/24/25 11:22 Sulfa (Sulfonamide Allergy Mild Rash Verified 07/24/25 11:22 Antibiotics) Home Meds Home Medications Medication Instructions Recorded Confirmed vitamins A,C,Q-apqp-lkudik 2,148 2 tab PO BID 12/02/21 07/31/25 mcg-113 mg-45 mg-17.4 mg tablet (PreserVision AREDS) coenzyme Q10 100 mg capsule 100 mg PO QAM 05/15/25 07/31/25 (CoQ-10) cyanocobalamin (vitamin B-12) 1,000 mcg PO QAM 05/15/25 07/31/25 1,000 mcg capsule Previous Rx's Medication Instructions Recorded amlodipine 10 mg tablet 10 mg PO QAM #90 tabs 10/11/24 azelastine 137 mcg (0.1 %) nasal 1 spray intranasal BID #30 mL 04/24/25 spray clopidogrel 75 mg tablet 75 mg PO QAM #90 tabs 07/30/25 metformin 500 mg tablet,extended 500 mg PO BID #60 tabs 07/30/25 release 24 hr Results & Data (ED) Vital Signs Vital Signs - 24 hr 07/31/25 10:50 07/31/25 11:15 07/31/25 11:15 Pulse Rate 85 Pulse Rate [Apical] Respiratory Rate 18 Blood Pressure [Right Arm] Blood Pressure Mean [Right Arm] Blood Pressure Position [Right Arm] Pulse Oximetry 98 98 Oxygen Delivery Method Room Air Room Air Oxygen Flow Rate 0 Sepsis Recent Fever Within 48 Hours No Sepsis New/Unexplained Change in Mental Status Yes Sepsis Action Taken by Nursing No Action Required 07/31/25 11:15 07/31/25 11:32 07/31/25 12:00 Pulse Rate Pulse Rate [Apical] 79 90 78 Respiratory Rate 18 16 16 Blood Pressure [Right Arm] 177/68 H 175/80 H 149/54 H Blood Pressure Mean [Right Arm] 104 111 85 Blood Pressure Position [Right Arm] Semi-fowlers Pulse Oximetry 98 96 96 Oxygen Delivery Method Room Air Room Air Oxygen Flow Rate Sepsis Recent Fever Within 48 Hours Sepsis New/Unexplained Change in Mental Status Sepsis Action Taken by Nursing 07/31/25 12:17 07/31/25 12:32 07/31/25 12:47 Pulse Rate Pulse Rate [Apical] 139 H 84 83 Respiratory Rate 16 16 18 Blood Pressure [Right Arm] 142/90 H 139/71 154/76 H Blood Pressure Mean [Right Arm] 107 93 102 Blood Pressure Position [Right Arm] Semi-fowlers Pulse Oximetry 96 99 96 Oxygen Delivery Method Room Air Room Air Room Air Oxygen Flow Rate Sepsis Recent Fever Within 48 Hours Sepsis New/Unexplained Change in Mental Status Sepsis Action Taken by Nursing 07/31/25 13:00 Pulse Rate Pulse Rate [Apical] 78 Respiratory Rate 16 Blood Pressure [Right Arm] 162/66 H Blood Pressure Mean [Right Arm] 98 Blood Pressure Position [Right Arm] Pulse Oximetry 97 Oxygen Delivery Method Room Air Oxygen Flow Rate Sepsis Recent Fever Within 48 Hours Sepsis New/Unexplained Change in Mental Status Sepsis Action Taken by Nursing Laboratory Data Attestation: I reviewed the patient's lab results. 07/31/25 10:55 07/31/25 10:55 Lab Results 07/31/25 07/31/25 Range/Units 10:55 11:16 WBC 8.18 (4.8-10.8) K/ul RBC 4.80 (4.20-5.40) M/uL Hgb 12.6 (12.0-16.0) g/dl Hct 40.6 (37.0-47.0) % MCV 84.6 (80.0-100.0) fL MCH 26.3 (25.0-34.0) pg MCHC 31.0 L (32.0-36.0) g/dL RDW Std Deviation 44.7 (36.4-46.3) fL RDW Coeff of Danny 14.5 (11.5-14.5) % Plt Count 308 (130-400) K/uL MPV 9.6 (9.4-12.4) fL Immature Gran % (Auto) 0.4 % Neut % (Auto) 70.1 % Lymph % (Auto) 15.4 % Shannon % (Auto) 10.0 % Eos % (Auto) 3.5 % Baso % (Auto) 0.6 % Neut # (Auto) 5.73 (1.40-6.50) K/uL Lymph # (Auto) 1.26 (1.20-3.40) K/uL Shannon # (Auto) 0.82 H (0.11-0.59) K/uL Eos # (Auto) 0.29 (0.00-0.50) K/uL Baso # (Auto) 0.05 (0.00-0.20) K/uL Immature Gran # (Auto) 0.03 (0.01-0.20) K/uL PT 10.7 (9.0-12.0) Seconds INR 1.0 (0.9-1.1) APTT 26 (21-31) Seconds PTT Ratio 1.0 Sodium 139 (136-145) mmol/L Potassium 3.7 (3.5-5.1) mmol/L Chloride 106 (98-107) mmol/L Carbon Dioxide 22 (21-32) mmol/L Anion Gap 11 (3-11) BUN 16 (6-23) mg/dl Creatinine 0.81 (0.6-1.2) mg/dl Est Cr Clr Drug Dosing Not Reportable eGFR 71.54 BUN/Creatinine Ratio 19.8 (10-20) Glucose 119 H (70-99(Fasting)) mg/dl POC Glucose 109 H (70-99) mg/dl Calcium 9.4 (8.6-10.3) mg/dl Phosphorus 3.0 (2.5-4.9) mg/dl Magnesium 1.7 (1.7-2.4) mg/dl Total Bilirubin 0.4 (0.2-1.0) mg/dl AST 10 L (13-39) U/L ALT 6 L (7-52) U/L Alkaline Phosphatase 58 (34-104) U/L Troponin I High Sens 5.8 (0-14) pg/ml Total Protein 6.4 (6.0-8.3) gm/dl Albumin 3.6 (3.4-5.0) gm/dl Globulin 2.8 (2.5-4.0) gm/dl Albumin/Globulin Ratio 1.3 (0.9-2) Lipase 11 (11-82) U/L TSH 1.200 (0.300-4.500) uIu/ml Administered Medications Azelastine HCl (Azelastine Hcl 0.1% Nasal 200 Sprays/27,400 Mcg Btl) 1 sprays NA BID RIGOBERTO Stop: 08/30/25 20:59 Last Admin: 07/31/25 21:26 Dose: 1 sprays Documented By: JODI Insulin Aspart (Insulin Aspart Per Unit Charge) 0 units SC ACHS RIGOBERTO Stop: 08/30/25 20:59 Last Admin: 07/31/25 21:26 Dose: 2 units Documented By: JODI Co-signed By: EUNICE Insulin Glargine (Lantus Per Unit Charge) 8 units SQ BID RIGOBERTO Stop: 08/30/25 20:59 Last Admin: 07/31/25 21:27 Dose: 8 units Documented By: JODI Co-signed By: EUNICE Discontinued Medications Sodium Chloride (Nss) 1,000 mls @ 999 mls/hr IV .Q1H1M ONE Stop: 07/31/25 11:50 Last Infusion: 07/31/25 13:01 Dose: Infused Documented By: shaji Admin: 07/31/25 12:03 Dose: 999 mls/hr Documented By: shaji Sodium Chloride (Nss) 1,000 mls @ 999 mls/hr IV .Q1H1M ONE Stop: 07/31/25 12:01 Last Infusion: 07/31/25 15:05 Dose: Infused Documented By: Admin: 07/31/25 13:03 Dose: 999 mls/hr Documented By: shaji Magnesium Sulfate/Dextrose (Magnesium Sulfate / D5w) 1 gm in 100 mls @ 100 mls/hr IV NOW STA Stop: 07/31/25 12:35 Last Infusion: 07/31/25 13:02 Dose: Infused Documented By: shaji Admin: 07/31/25 12:02 Dose: 100 mls/hr Documented By: shaji Ioversol (Optiray 320 125ml) 112 ml IV ONCE ONE Stop: 07/31/25 11:08 Last Admin: 07/31/25 11:08 Dose: 112 ml Documented By: GAYLE Miscellaneous (Stat Iv/Im) 1 each N/A NOW STA Stop: 07/31/25 11:33 Last Admin: 07/31/25 12:39 Dose: Not Given Documented By: LEONARDO Sodium Chloride (Sodium Chloride 0.9% 10ml Flush) 20 ml IV NOW STA Stop: 07/31/25 11:33 Last Admin: 07/31/25 12:40 Dose: Not Given Documented By: LEONARDO Imaging Data Radiologist's Impression: Chest X-Ray 07/31/25 10:49 XR chest 1V portable CLINICAL HISTORY: Chest pain, nonspecific COMPARISON STUDY: 07/20/2024 FINDINGS: There is stable prominence of the right upper mediastinum, seen to be a thyroid goiter that extends into the right mediastinum on the CT 07/31/2025. Heart size and pulmonary vasculature are normal. No consolidation or pleural effusion. No pneumothorax. IMPRESSION: No acute findings. ACT 112: Negative or not required by law. Electronically signed by: Clement Sinha M.D. 07/31/2025 12:57 PM Chest X-Ray 07/31/25 10:49 XR chest 1V portable CLINICAL HISTORY: Chest pain, nonspecific COMPARISON STUDY: 07/20/2024 FINDINGS: There is stable prominence of the right upper mediastinum, seen to be a thyroid goiter that extends into the right mediastinum on the CT 07/31/2025. Heart size and pulmonary vasculature are normal. No consolidation or pleural effusion. No pneumothorax. IMPRESSION: No acute findings. ACT 112: Negative or not required by law. Electronically signed by: Clement Sinha M.D. 07/31/2025 12:[address] 07/31/25 11:02 CT head/brain wo con CLINICAL HISTORY: neuro deficit, acute stroke suspected. TECHNIQUE: Multiple axial CT images of the head were obtained without contrast. A dose lowering technique was utilized adhering to the principles of ALARA. COMPARISON: 03/27/2025 FINDINGS: There is motion artifact. No intracranial hemorrhage seen. No mass effect, midline shift, or hydrocephalus. There are stable mild chronic small vessel ischemic changes. No skull fracture seen. Visualized paranasal sinuses and mastoid air cells are clear. IMPRESSION: No acute findings. ACT 112: Negative or not required by law. The above report was generated using voice recognition software. It may contain grammatical, syntax or spelling errors. Electronically signed by: Clement Sinha M.D. 07/31/2025 11:31 AM Head CTA 07/31/25 11:02 CT angio head w con CLINICAL HISTORY: 85 years-old Female with neuro deficit, acute stroke suspected. Acute stroke like symptoms COMPARISON STUDY: Head CT of same day TECHNIQUE: Following the IV administration of 112 cc of Optiray, CT angiogram of the brain was performed from the skull base to the vertex. Images are reviewed in the axial, sagittal, and coronal planes. 3-D MIPS images are created and assessed. IV contrast was administered without complication. All measurements were obtained according to NASCET criteria. A dose lowering technique was utilized adhering to the principles of ALARA. CT DOSE: 1695.55 mGy.cm FINDINGS: CT BRAIN: Dictated separately. Involutional changes with chronic microvascular ischemic disease. CT ANGIOGRAM OF THE BRAIN: The imaged bilateral internal carotid arteries are patent. Areas of mild multifocal stenoses involve the bilateral middle cerebral arteries. The anterior cerebral arteries are widely patent. The distal vertebral arteries and basilar arteries are widely patent. There is mild stenoses within the left posterior cerebral artery. The right posterior cerebral artery is widely patent. No aneurysm, dissection, high-grade stenosis or arterial occlusion. IMPRESSION: Unremarkable CTA of the head. ACT 112: Negative or not required by law. The above report was generated using voice recognition software. It may contain grammatical, syntax or spelling errors. Electronically signed by: Carlos Santiago M.D. 07/31/2025 11:24 AM Neck CTA 07/31/25 11:02 CT ANGIOGRAPHY OF THE NECK WITH CONTRAST CLINICAL HISTORY: neuro deficit, acute stroke suspected COMPARISON STUDY: CTA of the neck March 27, 2025. Thyroid ultrasound April 19, 2025. Technique: CT angiography of the carotid and vertebral arteries was obtained using Optir[employer] and 3D reconstruction on an independent workstation. NASCET criteria was utilized. Automated exposure control was utilized for the study. A dose lowering technique was utilized adhering to the principles of ALARA. Findings: Visualized lung apices are unremarkable. Multinodular right lobe thyroid goiter is noted. This is better depicted on ultrasound of April 19, 2025. There is no cervical lymphadenopathy. This exam is moderately compromised by motion artifact. There is moderate plaque within the bilateral carotid bifurcations without significant stenosis of the cervical internal carotid artery. There is no aneurysm or dissection within the neck. The vertebral arteries are patent. The CTA of the head will be reported separately. IMPRESSION: 1. Moderate motion artifact. No stenosis or dissection within the bilateral common carotid, cervical internal carotid or vertebral arteries. 2. Moderate atherosclerotic plaque within bilateral carotid bifurcations without significant stenosis. ACT 112: Negative or not required by law. Electronically signed by: Reji Leblanc M.D. 07/31/2025 11:27 AM Discharge Plan Visit Data Chief Complaint: Stroke/CVA Symptoms Stated Complaint: WEAKNESS, CONFUSION, DIFF AMBULATING ED Provider: Chance Frazier Discharge Problem: Stroke-like symptoms, Hypertension, Aphasia Patient Disposition: Admitted As Inpatient Condition: Fair Discharge Instructions Interventions: ED Discharge Assessment Last Done: 07/31/25 17:21 Discharge Problem: Hypertension Qualifiers: Hypertension type: unspecified Qualified Code(s): I10 - Essential (primary) hypertension
[2025-07-31] MEDS: OPTIRAY 320 125ml IV ONE (11:08)
[2025-07-31 11:15] LABS: Hematocrit (blood only) 40.6 % (37.0-47.0); Hemoglobin 12.6 g/dl (12.0-16.0); Immature Granulocytes # (auto) 0.03 K/uL (0.01-0.20); Immature Granulocytes % (auto) 0.4 %; Mean Corpuscular Hemoglobin 26.3 pg (25.0-34.0); Mean Corpuscular Volume 84.6 fL (80.0-100.0); Platelet Count 308 K/uL (130-400); RDW Standard Deviation 44.7 fL (36.4-46.3); Red Blood Count 4.80 M/uL (4.20-5.40); White Blood Count 8.18 K/ul (4.8-10.8)
--- NOTE | 2025-07-31 11:25 | CT Scan Report ---
CT angio head w con CLINICAL HISTORY: 85 years-old Female with neuro deficit, acute stroke suspected. Acute stroke lik e symptoms COMPARISON STUDY: Head CT of same day TECHNIQUE: Following the IV administration of 112 cc of Optiray, CT angiogram of the brain was perfor med from the skull base to the vertex. Images are reviewed in the axial, sagittal, and coronal planes . 3-D MIPS images are created and assessed. IV contrast was administered without complication. All me asurements were obtained according to NASCET criteria. A dose lowering technique was utilized adherin g to the principles of ALARA. CT DOSE: 1695.55 mGy.cm FINDINGS: CT BRAIN: Dictated separately. Involutional changes with chronic microvascular ischemic disease. CT ANGIOGRAM OF THE BRAIN: The imaged bilateral internal carotid arteries are patent. Areas of mild multifocal stenoses involve the bilateral middle cerebral arteries. The anterior cerebral arteries are widely patent. The distal vertebral arteries and basilar arteries are widely patent. There is mild stenoses within the left pos terior cerebral artery. The right posterior cerebral artery is widely patent. No aneurysm, dissection , high-grade stenosis or arterial occlusion. IMPRESSION: Unremarkable CTA of the head. ACT 112: Negative or not required by law. The above report was generated using voice recognition software. It may contain grammatical, syntax o r spelling errors. Electronically signed by: Carlos Santiago M.D. 07/31/2025 11:24 AM
--- NOTE | 2025-07-31 11:29 | CT Scan Report ---
CT ANGIOGRAPHY OF THE NECK WITH CONTRAST CLINICAL HISTORY: neuro deficit, acute stroke suspected COMPARISON STUDY: CTA of the neck March 27, 2025. Thyroid ultrasound April 19, 2025. Technique: CT angiography of the carotid and vertebral arteries was obtained using Optir[employer] and 3D rec onstruction on an independent workstation. NASCET criteria was utilized. Automated exposure control was utilized for the study. A dose lowering technique was utilized adhering to the principles of ALA RA. Findings: Visualized lung apices are unremarkable. Multinodular right lobe thyroid goiter is noted. T his is better depicted on ultrasound of April 19, 2025. There is no cervical lymphadenopathy. This exa m is moderately compromised by motion artifact. There is moderate plaque within the bilateral carotid bifurcations without significant stenosis of the cervical internal carotid artery. There is no aneur ysm or dissection within the neck. The vertebral arteries are patent. The CTA of the head will be rep orted separately. IMPRESSION: 1. Moderate motion artifact. No stenosis or dissection within the bilateral common carotid, cervical internal carotid or vertebral arteries. 2. Moderate atherosclerotic plaque within bilateral carotid bifurcations without significant stenosis . ACT 112: Negative or not required by law. Electronically signed by: Reji Leblanc M.D. 07/31/2025 11:27 AM
[2025-07-31 11:33] LABS: Alanine Aminotransferase 6 U/L (7-52); Albumin Globulin Ratio 1.3 (0.9-2); Albumin Level 3.6 gm/dl (3.4-5.0); Alkaline Phosphatase 58 U/L (34-104); Anion Gap 11 (3-11); Bilirubin,Total 0.4 mg/dl (0.2-1.0); Blood Urea Nitrogen 16 mg/dl (6-23); Calcium 9.4 mg/dl (8.6-10.3); Carbon Dioxide 22 mmol/L (21-32); Chloride 106 mmol/L (98-107); Globulin 2.8 gm/dl (2.5-4.0); Glucose 119 mg/dl (70-99(Fasting)); Lipase 11 U/L (11-82); Magnesium 1.7 mg/dl (1.7-2.4); Potassium 3.7 mmol/L (3.5-5.1); Sodium 139 mmol/L (136-145); Total Protein 6.4 gm/dl (6.0-8.3)
--- NOTE | 2025-07-31 11:33 | CT Scan Report ---
CT head/brain wo con CLINICAL HISTORY: neuro deficit, acute stroke suspected. TECHNIQUE: Multiple axial CT images of the head were obtained without contrast. A dose lowering tech nique was utilized adhering to the principles of ALARA. COMPARISON: 03/27/2025 FINDINGS: There is motion artifact. No intracranial hemorrhage seen. No mass effect, midline shift, o r hydrocephalus. There are stable mild chronic small vessel ischemic changes. No skull fracture seen. Visualized paranasal sinuses and mastoid air cells are clear. IMPRESSION: No acute findings. ACT 112: Negative or not required by law. The above report was generated using voice recognition software. It may contain grammatical, syntax o r spelling errors. Electronically signed by: Clement Sinha M.D. 07/31/2025 11:31 AM
[2025-07-31] MEDS ORDERED: TENECTEPLASE 15 MG in SYRINGE 0 ML IV ONE (11:42)
[2025-07-31] MEDS ORDERED: No Aspirin within 24hrs of THROMBOLYTIC-Stroke PO SCH (11:45)
[2025-07-31 11:47] LABS: Partial Thromboplastin Time 26 Seconds (21-31)
[2025-07-31 11:48] LABS: Thyroid Stimulating Hormone 1.200 uIu/ml (0.300-4.500)
[2025-07-31] MEDS: MAGNESIUM SULFATE / D5W 1 GM/100 ML BAG IV STA (12:02)
[2025-07-31] MEDS: SODIUM CHLORIDE 0.9% 1,000 ML IV ONE ×2 (12:03→13:03)
[2025-07-31] MEDS: STAT IV/IM STA (12:39)
[2025-07-31] MEDS: SODIUM CHLORIDE 0.9% 10ML FLUSH IV STA (12:40)
[2025-07-31 12:53] LABS: INR 1.0 (0.9-1.1); Prothrombin Time 10.7 Seconds (9.0-12.0)
--- NOTE | 2025-07-31 12:59 | XRay Report ---
XR chest 1V portable CLINICAL HISTORY: Chest pain, nonspecific COMPARISON STUDY: 07/20/2024 FINDINGS: There is stable prominence of the right upper mediastinum, seen to be a thyroid goiter that extends into the right mediastinum on the CT 07/31/2025. Heart size and pulmonary vasculature are nor mal. No consolidation or pleural effusion. No pneumothorax. IMPRESSION: No acute findings. ACT 112: Negative or not required by law. Electronically signed by: Clement Sinha M.D. 07/31/2025 12:57 PM
[2025-07-31] MEDS ORDERED: ONDANSETRON INJ 2 MG/ML 2 ML VIAL IV PRN (14:51)
[2025-07-31] MEDS ORDERED: POLYETHYLENE (MIRALAX) 17 GM PACK PO PRN (14:51)
[2025-07-31] MEDS ORDERED: MELATONIN 3 MG TAB PO PRN (14:56)
--- NOTE | 2025-07-31 15:13 | History & Physical Report ---
Date of Service July 31, 2025 Assessment & Plan (1) S/P lumbar and lumbosacral fusion by anterior technique: (2) Type 2 diabetes mellitus: (3) Hx of transient ischemic attack (TIA): (4) Confusion with nonfocal neurological examination: Plan #TIA/Stroke-like Sx/Confusion - Patient w/ some expressive aphasia noted at home and when first arriving to the ER, but resolved - CT-Head: no acute findings; CTA-Head, Neck: no acute findings - order MRI-Brain (w/o con), pt w/ screws from recent lumbar spinal fusion - order TTE (w/ bubble study) - last fasting Lipid Panel: TChol, 110; LDL, 35; HDL, 49; TG, 131 (April,); last A1C, 7.4 (April,) - held amlodipine, all permissive HTN for 24 hrs #Delirium/Confusion - CMP and CBC largely WNL (AST/ALT both low); TSH, 1.2 - UA: 2+ blood, 1+ LE; pt only endorsing increased ur frequency after IV fluids - unclear etiology if not related to TIA or stroke, pt on few meds, labs largely normal #Unsteadiness/Trochanteric bursitis/SI joint tenderness - Fall precautions - Outpt appt already scheduled at end of Jul, 2025 Chronic conditions #S/P TIA, HLD - continue Plavix, 75 mg, PO, daily #Low LDL - Crestor stopped as outpt #HTN - hold amlodipine for now #T2DM - hold metformin - Lantus, 8U, subQ, BID - Novolog, CF, 30; CR, 10 Code status: Full code Disposition: Med-Tele, Obs FENGI: T2DM Carb Consistent Diet, NPO until Dysphagia screen VTE Prophylaxis: SCD's (knee-high) History of Present Illness Chief Complaint: Patient is a 85 yo F w/ a PMHx of CKD-stage 3, T2DM, osteoarthritis, HTN, HLD, spinal stenosis (lumbar region), s/p lumbar fusion (L3-L4, L4-L5, and LADR), anemia of chronic disease, mitral stenosis, trochanteric bursitis of l. hip, Hx of breast cancer, Hx of TIA (03/2024, 03/2025), presenting today with symptoms concerning for a stroke or TIA, including confusion, temporary garbled speech/expressive aphasia. Patient denies any trouble swallowing or problems vocalizing. Patient also denies any loss of sensation of any part of her body or trouble with vision. Patient and patient's note she was normal when she woke up, took a shower, and did some morning exercises in the bedroom but when they came down together for breakfast, the patient seemed disoriented and confused, went the wrong way to the kitchen and seemed unable to remember normal things like ability to pronounce her 's last name. The patient's then proceeded to call 911. Primary Care Provider: Jeff Munson MD Allergies Allergy/AdvReac Type Severity Reaction Status Date / Time furosemide Allergy Mild Rash Verified 07/24/25 11:22 Sulfa (Sulfonamide Allergy Mild Rash Verified 07/24/25 11:22 Antibiotics) Home Medications Medication Instructions Recorded Confirmed Type vitamins A,C,U-duke-lxbzot 2,148 2 tab PO BID 12/02/21 07/31/25 History mcg-113 mg-45 mg-17.4 mg tablet (PreserVision AREDS) amlodipine 10 mg tablet 10 mg PO QAM #90 tabs 10/11/24 07/31/25 Rx azelastine 137 mcg (0.1 %) nasal 1 spray intranasal BID #30 mL 04/24/25 07/31/25 Rx spray coenzyme Q10 100 mg capsule 100 mg PO QAM 05/15/25 07/31/25 History (CoQ-10) cyanocobalamin (vitamin B-12) 1,000 mcg PO QAM 05/15/25 07/31/25 History 1,000 mcg capsule clopidogrel 75 mg tablet 75 mg PO QAM #90 tabs 07/30/25 07/31/25 Rx metformin 500 mg tablet,extended 500 mg PO BID #60 tabs 07/30/25 07/31/25 Rx release 24 hr Past Med/Surg History Problem List (Updated 07/31/25 @ 18:33 by Dinesh Chatman MD) Confusion with nonfocal neurological examination Greater trochanteric bursitis of left hip S/P lumbar and lumbosacral fusion by anterior technique (06/08/25) Robotic Assisted L3-L4, L4-L5 Oblique Lumbar Interbody Fusion with Posterior Instrumentation with Spinal Cord Monitoring - Kam Sweet MD Lumbar Levels L3-L4, L4-L5 Anterior Spinal Exposure, Discectomy and Arthrodesis - Matti Vernon, Gait disturbance History of breast cancer Anemia Mitral stenosis Echo 03/2025: Mild mitral stenosis. Severe posterior mitral annular calcification. S/P lumbar fusion Anemia in chronic kidney disease LVH (left ventricular hypertrophy) Scoliosis of lumbar region due to degenerative disease of spine in adult (Chronic) Spinal stenosis of lumbar region (Chronic) Multinodular goiter (nontoxic) (Chronic) Tremor of both hands (Chronic) Chronic kidney disease, stage 3 (Chronic) Type 2 diabetes mellitus (Chronic) Hyperlipidemia Osteoarthritis Hypertension (Chronic) Medical History Thyroid nodule Lumbosacral spondylosis Postmenopausal state Spondylolisthesis of lumbar region Direct hyperbilirubinemia Ecchymosis Pulmonary hypertension Chronic sinusitis Generalized weakness Chronic fatigue Hx of transient ischemic attack (TIA) Chronic kidney disease, stage 3 Chronic low back pain Scoliosis of lumbar spine Spondylolisthesis Spinal stenosis, lumbar Tremor of both hands Type 2 diabetes mellitus Osteopenia Osteoarthritis History of hypothyroidism Hyperlipidemia Hypertension Heartburn Greater trochanteric bursitis of both hips Allergic rhinitis Seborrheic keratosis Overactive bladder 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 Daughter No problems noted. Son No problems noted. Family/Other Hypertension Other No family history of adverse response to anesthesia No family history of bleeding disorder Denies family history of Ovarian cancer Prostate cancer Myocardial infarction Breast cancer Colorectal cancer Social History Smoking Status: Unknown if ever smoked Tobacco Type: Declines Second Hand Exposure: No; Do You Dip or Chew Tobacco: No; Hx Alcohol Use: No Hx Substance Use: No Preferred Language: Palauan Communication Ability: Effective Visual Impairment: No Limitations Hearing Ability: Normal Food Critic Required: No Beliefs That Will Affect Care: Presybeterian marital status: Current Living Situation: Spouse current occupational status: retired 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 How many Children do You have: 2 Feels Safe at Home: Yes Childhood Exposure to Second-Hand Smoke: Yes Diet: diabetic caffeine: No during the past year weight has: remained stable Dental Care, Regularly: Yes Physical Activity Frequency: Daily Seatbelt Use: always Sunscreen Use: Yes Assistive Devices: Cane and Walker Review of Systems Eyes: no diplopia and no worsening vision Ear, Nose, Mouth, Throat: no dysphagia Respiratory: no cough, no chest congestion and no dyspnea Cardiovascular: no chest pain, no radiating jaw, neck or arm pain and no palpitations Gastrointestinal: no abdominal pain, no nausea, no vomiting, no constipation and no diarrhea/loose stools Genitourinary: no dysuria, no urinary frequency, no urinary urgency and no flank pain Neurologic: + unsteadiness, + abnormal speech and + confusion; no tingling, no numbness, no paresthesia and no lack of coordination Physical Exam Constitutional: WD/WN, vitals as above Respiratory: normal respiratory effort, lungs clear to auscultation Cardiovascular: RRR, no murmur, no edema Vessels: radial pulses present Extremities: normal capillary refill; no calf tenderness and no pedal edema Gastrointestinal (Abdomen): normal bowel sounds, soft, nontender, no hepatosplenomegaly Neurologic: CN's II-XI intact bilaterally, moves all extremities and awake Speech / Cognition: + abnormal cognition; no expressive aphasia and no receptive aphasia Coordination: normal nvuvjo-vn-dlxu test, normal iaml-ma-yemv test and normal rapid alternating movements Patient unable to perform several simple cognitive tasks like counting backwards from 100 by 5, could only name one animal starting with letter "P" within a minute. Patient did know current and prior Presidents of the [email or web address]. Psychiatric: Orientation: alert, oriented to person, oriented to place and cooperative; + not oriented to time Results & Data Results & Data Vital Signs (Past 12 Hours) Vital Signs Pulse Pulse Resp BP Pulse Ox O2 Del Method O2 Flow Rate 07/31/25 13:00 78 16 162/66 H 97 Room Air 07/31/25 12:47 83 18 154/76 H 96 Room Air 07/31/25 12:32 84 16 139/71 99 Room Air 07/31/25 12:17 139 H 16 142/90 H 96 Room Air 07/31/25 12:00 78 16 149/54 H 96 Room Air 07/31/25 11:32 90 16 175/80 H 96 07/31/25 11:15 79 18 177/68 H 98 Room Air 07/31/25 11:15 98 Room Air 0 07/31/25 11:15 85 18 98 Room Air Code Status & VTE Plan VTE Prophylaxis Plan VTE Prophylaxis will be ordered: Yes Supervising Physician Co-Signing Physician Notes I personally examined the patient and verified all patrick points of history and exam, discussed case, and agree with decision making with Dr Chatman transiently confused and not acting like herself. Has vague hazy recollections of it. Feels totally normal now. Hard to tell if she had difficulty word finding or was just talking nonsensically. No focal symptoms at the time. Vitals noted, in general she is awake and alert oriented to person place time situation etc. Breathing unlabored no accessory muscle use good effort. Skin without rashes pallor or icterus. Neuro without focal deficits. Labs and diagnostics noted. Transient confusion/possible difficulty with word findingetiology not entirely clear. The case for something cerebrovascular such as a TIA would be with rapid onset, prior history of TIA, and questionable difficulty with word findingi.e. was this a degree of an expressive aphasia. The case against would be that it seemed to be more of a global confusion and focal neurologic, she seems to be more disoriented rather than anything fitting more classically cerebrovascular. Also seems to fit a degree with delirium given that she was confused and has a hazy recollection of ithowever, it came on quickly with no c lear inciting factor, there is no deliriogenic issues at play right now, and it resolved extremely quickly. Transient global amnesia fits reasonably well except for the fact that she has a vague/hazy recollection of it. She also recalls having had a similar episode in the pastalthough whenever asked her to clarify she had a hard time recalling exactly what it was about mostly remembering balance issuesso it may have been a different phenotypic process at play. Stroke workup, serial exams, time. Otherwise as above. 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
--- NOTE | 2025-07-31 15:23 | Electrocardiogram Report ---
Test Reason : Blood Pressure : */* mmHG Vent. Rate : 83 BPM Atrial Rate : 83 BPM P-R Int : 136 ms QRS Dur : 72 ms QT Int : 368 ms P-R-T Axes : 48 28 40 degrees QTcB Int : 432 ms Normal sinus rhythm Nonspecific ST and T wave abnormality Abnormal ECG When compared with ECG of 27-Mar-2025 13:20, QRS axis Shifted right T wave inversion no longer evident in Lateral leads Confirmed by Sergio Germain ([id number]) on 07/31/2025 3:22:45 PM Referred By: REFERRED SELF Confirmed By: Sergio Germain
[2025-07-31 17:45] LABS: Appearance Urine Clear (Clear); Bacteria Urine Automated None Seen (None Seen); Cast Urine Automated 0-2 /lpf (0-2); Epithelial Cell Urine Auto 0-2 /hpf (0-2); Glucose Urine UA Negative (Negative); RBC Urine Automated >20 /hpf (0-2); WBC Urine Automated 0-5 /hpf (0-5)
--- NOTE | 2025-07-31 17:49 | Billing Data ---
Date of Service July 31, 2025 Coding Level of Care Code 25352 INT INP/OBS CARE
[2025-07-31] MEDS ORDERED: CARBOHYDRATES FOR HYPOGLYCEMIA PO PRN (18:23)
[2025-07-31] MEDS ORDERED: GLUCOSE 40% GEL 15 GM TUBE PO PRN (18:23)
[2025-07-31] MEDS ORDERED: GLUCOSE 10 TAB/TUBE PO PRN (18:23)
[2025-07-31] MEDS ORDERED: DEXTROSE 50% 50 ML SYRINGE IV PRN (18:23)
[2025-07-31] MEDS ORDERED: GLUCAGON FOR INJ 1 MG VIAL SQ PRN (18:23)
--- NOTE | 2025-07-31 20:02 | Magnetic Resonance Report ---
Clinical History: Expressive aphasia. Confusion Technique: Multiple T1 and T2-weighted magnetic resonance images were obtained of the brain without gadolinium contrast Comparison is made to the prior MRI dated 03/27/2025 Findings: There is no sign of acute or old infarction with normal-appearing diffusion weighted images. There is cerebral atrophy, within expected limits for the patient's age. There are focal and confluent areas of increased T2 signal intensity within the periventricular white matter of the cerebral hemispheres bilaterally. This is most likely due to chronic small vessel ischemic disease. No definite mass lesion is seen on this noncontrast study. There is no intracranial hemorrhage or other fluid collection. No midline shift or other form of herniation is seen. There is no hydrocephalus. Normal flow-voids are seen within the arteries of the [id number]. 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 The paranasal sinuses and mastoid air cells appear clear. Impression: 1. Cerebral atrophy and chronic small vessel ischemic disease 2. Otherwise unremarkable noncontrast MRI of the brain Electronically signed by Ryan Jay 07-31-2025 8:01 PM
[2025-07-31] MEDS: INSULIN ASPART PER UNIT CHARGE SC SCH (21:26)
[2025-07-31] MEDS: AZELASTINE HCL 0.1% NASAL 200 SPRAYS/27,400 MCG BTL SCH (21:26)
[2025-07-31] MEDS: LANTUS PER UNIT CHARGE SQ SCH (21:27)
[2025-08-01] MEDS: ACETAMINOPHEN 500 MG TAB PO PRN (04:34)
[2025-08-01] MEDS: CYANOCOBALAMIN (B-12) 500 MCG TABLET PO SCH (07:18)
[2025-08-01] MEDS: CLOPIDOGREL BISULFATE 75 MG TAB PO SCH (07:18)
[2025-08-01] MEDS: CEROVITE ADV FORMULA TAB PO SCH (07:18)
[2025-08-01 07:32] VITALS: RESP 16
[2025-08-01] MEDS ORDERED: NON-FORMULARY MEDICATION (Coenzyme Q10 [Coq-10] 100 mg Capsule) PO SCH (09:00)
[2025-08-01] MEDS: INFLUENZA VACC TS2025-26(65y+)/PF (IIV3) 0.5mL Syr IM ONE (10:15)
[2025-08-01] MEDS ORDERED: PHARMACIST DISCHARGE MED REC CONSULT PRN (10:29)
--- NOTE | 2025-08-01 11:33 | XCELERA ---
[id number]
--- NOTE | 2025-08-01 13:00 | Discharge Summary ---
Date of Service August 01, 2025 Admission HPI Per Admitting Provider Patient is a 85 yo F w/ a PMHx of CKD-stage 3, T2DM, osteoarthritis, HTN, HLD, spinal stenosis (lumbar region), s/p lumbar fusion (L3-L4, L4-L5, and LADR), anemia of chronic disease, mitral stenosis, trochanteric bursitis of l. hip, Hx of breast cancer, Hx of TIA (03/2024, 03/2025), presenting today with symptoms concerning for a stroke or TIA, including confusion, temporary garbled speech/expressive aphasia. Patient denies any trouble swallowing or problems vocalizing. Patient also denies any loss of sensation of any part of her body or trouble with vision. Patient and patient's note she was normal when she woke up, took a shower, and did some morning exercises in the bedroom but when they came down together for breakfast, the patient seemed disoriented and confused, went the wrong way to the kitchen and seemed unable to remember normal things like ability to pronounce her 's last name. The patient's then proceeded to call 911. Admission Exam Per Admitting Provider Physical Exam Constitutional: WD/WN, vitals as above Respiratory: normal respiratory effort, lungs clear to auscultation Cardiovascular: RRR, no murmur, no edema Vessels: radial pulses present Extremities: normal capillary refill; no calf tenderness and no pedal edema Gastrointestinal (Abdomen): normal bowel sounds, soft, nontender, no hepatosplenomegaly Neurologic: CN's II-XI intact bilaterally, moves all extremities and awake Speech / Cognition: + abnormal cognition; no expressive aphasia and no receptive aphasia Coordination: normal tgjwzk-cu-lsvf test, normal puqz-yj-hfkj test and normal rapid alternating movements Patient unable to perform several simple cognitive tasks like counting backwards from 100 by 5, could only name one animal starting with letter "P" within a minute. Patient did know current and prior Presidents of [employer]. Psychiatric: Orientation: alert, oriented to person, oriented to place and cooperative; + not oriented to time Principal Diagnosis TIA, delirium Discharge Exam Constitutional WD/WN, vitals as above Respiratory normal respiratory effort, lungs clear to auscultation Cardiovascular RRR, no murmur, no edema Extremities: no pedal edema Gastrointestinal (Abdomen) normal bowel sounds, soft, nontender, no hepatosplenomegaly Neurologic moves all extremities and awake Speech / Cognition: no expressive aphasia, no receptive aphasia and normal cognition Psychiatric Orientation: alert, oriented x 3 and cooperative Discharge Data Allergies Allergy/AdvReac Type Severity Reaction Status Date / Time furosemide Allergy Mild Rash Verified 07/24/25 11:22 Sulfa (Sulfonamide Allergy Mild Rash Verified 07/24/25 11:22 Antibiotics) Consultations 07/31/25 12:14 ED Decision to Admit Stat 08/01/25 10:32 Consult Neurology Routine Ordered Studies 07/31/25 11:02 CT angio head w con Stat CT angio neck with con Stat CT head/brain wo con Stat 07/31/25 18:07 MRI Brain [MR brain wo con] Routine Hospital Course (1) S/P lumbar and lumbosacral fusion by anterior technique: (2) Type 2 diabetes mellitus: (3) Hx of transient ischemic attack (TIA): (4) Confusion with nonfocal neurological examination: Plan #TIA/Stroke-like Sx/Confusion - Patient w/ some expressive aphasia noted at home and when first arriving to the ER, but resolved - CT-Head: no acute findings; CTA-Head, Neck: no acute findings - MRI-Brain (w/o con), pt w/ screws from recent lumbar spinal fusion 1) Cerebral atrophy and chronic small vessel ischemic disease, 2) no sign of old or acute infarction - TTE (w/ bubble study): 1) No interatrial shunt identified w/ contrast injection, 2) EF of 60-65% - last fasting Lipid Panel: TChol, 110; LDL, 35; HDL, 49; TG, 131 (April,); last A1C, 7.4 (April,) - held amlodipine, allowed permissive HTN for 24 hrs - Neuro consult placed, recommendations appreciated --> Neuro will F/U with pt in outpt setting - if TIA, could consider changing Plavix to aspirin or aspirin-dipyridamole instead, but will keep patient on Plavix, 75 mg, PO, daily for now #Delirium/Confusion - CMP and CBC largely WNL (AST/ALT both low); TSH, 1.2 - UA: 2+ blood, 1+ LE; pt only endorsing increased urinary frequency after IV fluids - unclear etiology if not related to TIA or stroke, pt on few meds, labs largely normal #Unsteadiness/Trochanteric bursitis/SI joint tenderness - Fall precautions - Outpt appt already scheduled at end of Jul, 2025 Chronic conditions #S/P TIA, HLD - continue Plavix, 75 mg, PO, daily #Low LDL - Crestor stopped as outpt #HTN - hold amlodipine for now #T2DM - hold metformin - Lantus, 8U, subQ, BID - Novolog, CF, 30; CR, 10 Total Time Total Time Spent Total Time Spent (In Minutes): <30 Discharge Plan Discharge Items Patient Disposition: Home - Self-Care Reason For Visit: CONFUSION, TEMPORARY APHASIA Discharge Diagnosis: TIA or TGA Condition on Discharge: Fair Activity: Resume your previous activity Non-emergency contact: Primary Care Provider and Neurologist Call non-emergency contact if: you have any medication questions and your symptoms worsen Follow-up/Referrals: Jeff Munson MD [Primary Care Provider] - 08/16/25 10:30 am (APPT. GONZALO PAGE PA-C) Diet: Carb Consistent or DM2 Addtl Attending Provider Instructions: You were admitted to the hospital for sudden onset confusion, speaking difficulty, word finding difficulty. You were treated with with your home medications and given IV fluids. Diagnostic tests were performed to rule out potential serious conditions such as stroke, cardio-embolic stroke. A discharge summary will be sent to your primary care physician to ensure continuity of care. Please bring this discharge summary with you to your next office appointment so that your provider can review it at that time. Follow-up appointments: We have requested a follow-up appointment with your primary care physician within one week of discharge. Please call their office if you do not hear from them. Keep all your follow-up appointments as already scheduled. If you cannot make an appointment, notify your provider. Medications: Your medication list has been reviewed and reconciled upon discharge to ensure accuracy and continuity of care. An updated list of all your medications is included with your hospital discharge paperwork. Please review this list closely, and make note of any changes. We sent a new medication called [med name] to your pharmacy. Take [med name] ([_]mg) [one tablet] [daily] [for _ days]. Take your medications as instructed; do not skip a dose of your medicines. Make sure all of your doctors know every medicine you are taking (including kqkj-shz-kscwxce medicines, vitamins, and supplements). Call your primary care provider before taking any new medicines (including kvqk-pmb-nkdlist medicines, vitamins, and supplements), because some of these may interact with your current medications, or may make your symptoms worse. Tell your primary care provider if you cannot afford your medications. CONTACT YOUR PRIMARY CARE PROVIDER if you experience any of the following: focal weakness or loss of sensation, swallowing difficulty, vision changes speaking difficulty or understanding difficulty, confusion, cognitive issues Difficulty following your treatment plan, or difficulty taking medications CALL 911 OR GO TO THE EMERGENCY DEPARTMENT if you experience any of the following: Sudden, severe abdominal pain or nausea/vomiting Severe chest pain, or chest pain that radiates (moves) to your jaw or arm Sudden, severe shortness of breath or difficulty breathing Thank you for allowing us to participate in your care Pending Studies at Discharge: No Stand-Alone Forms: My [facility] [email or web address], Smoking Cessation, Medications to Prevent Stroke Medications and DC Order Prescriptions: Continued PreserVision AREDS 7,160 unit- 113 mg-100 unit tablet 2 tab PO BID Rx Instructions: administer with AM and PM meals amlodipine 10 mg tablet 10 mg PO QAM Qty: 90 3RF azelastine 137 mcg (0.1 %) spray,non-aerosol 1 spray intranasal BID Qty: 30 1RF Rx Instructions: administer into each nostril metformin 500 mg tablet extended release 24 hr 500 mg PO BID Qty: 60 5RF Hold Instructions: Resume on 03/29/25. clopidogrel 75 mg tablet 75 mg PO QAM Qty: 90 1RF coenzyme Q10 [CoQ-10] 100 mg Capsule 100 mg PO QAM cyanocobalamin (vitamin B-12) 1,000 mcg capsule 1,000 mcg PO QAM Discharge Orders: Discharge Order (Routine); Ordered 08/01/25 Ordered By: Dinesh Nelson/Other Patient Handouts: Symptoms of Stroke, What Is a TIA? Admission Data Admit Date/Time: 07/31/25 14:53 Attending Provider: Ron Tavarez Admit Provider: Dinesh Chatman Primary Care Provider: Jeff Munson V. Other Providers: Ron Tavarez; Partha Yates Other Interventions: Discharge Summary Assessment (RN) Last Done: 08/01/25 18:04 Supervising Physician Co-Signing Physician Notes I personally examined the patient and verified all patrick points of history and exam, discussed case, and agree with decision making with Dr Chatman feels totally fine, no further sx no new sx no recurrent sx. vitals noted nad heent nc at mmm breathing unlabored no accessory muscles good effort no focal neuro deficits, labs and diagnostics reviewed Transient confusion/possible difficulty with word findingetiology not entire ly clear. totally resolved -TIA vs TGA most likely potential etiologies - asked neuro for input given unclear etiology as well as ?if TIA could any further meaningful risk reduction be done (BP good, lipids quite suppressed, A1c 7.4, already on plavix) - neurology noted TIA is possible and cannot be excluded, wondered about mild cognitive impairment, and considered EEG and outpatient cardiac monitoringWill follow-up in clinic. incidentally noted at time of dc - low B12 of 239 from 05/18/23 labs - on PO supplementation, but did not see f/u level - asked if it can be added to labs already drawn earlier; if not would ask that a repeat level be done as outpatient otherwise as above
--- NOTE | 2025-08-01 13:02 | Pharmacy Report ---
- Date of Service August 01, 2025 - Pharmacy CVA/TIA Medication Review Medications to Prevent Stroke handout has been added to the patients discharge packet. Antiplatelet(s) * Clopidogrel 75 mg PO daily (home med) * Awaiting neurology recommendation on whether DAPT is necessary for TIA vs TGA Cholesterol * High intensity statin deferred due to age >75 and LDL of 35 (Crestor was stopped from home previously this year) DVT Prophylaxis * SCD knee Therapeutic Anticoagulation * No history of Afib/Aflutter noted Type 2 Diabetes * Patient has T2DM, but per Dr. Chatman, a diabetes medication with proven CVD benefit will be deferred to their outpatient provider due to familiarity with risks/benefits of such therapies. "Medications to prevent stroke" handout has already been added to the patient's discharge packet, which instructs the patient to follow up with their outpatient provider to evaluate which diabetes medication with proven CVD benefit is best for them
[2025-08-01 15:56] VITALS: PULSE 63; TEMP 97.9; O2SAT 97
--- NOTE | 2025-08-01 17:34 | Billing Data ---
Date of Service August 01, 2025 Coding Level of Care Code 58637 IN/OBS DISCH 30 MIN/LESS
[2025-08-01] MEDS ORDERED: STROKE PATIENT DISCHARGE STA (18:02)
[2025-08-01 18:06] VITALS: BP 162/66
--- NOTE | 2025-08-01 18:11 | Neurology Consultation ---
Date of Consultation August 01, 2025 Assessment & Plan (1) Confusion with nonfocal neurological examination: (2) Stroke-like symptoms: (3) S/P lumbar and lumbosacral fusion by anterior technique: Plan 85-year-old female presenting with a transient episode of confusion without other associated focal neurological deficits. There was no collapse or loss of consciousness, no dizziness, she is mildly amnestic for the event. She has had 2 previous similar episodes, although reportedly much briefer. These episodes have been a bit brief for typical transient global amnesia. TIA is possible and cannot be excluded. She should continue with clopidogrel as ordered. Her lipid panel from this past April looks very good, she does not appear to require a statin, her LDL was less than 70. She may follow-up with her PCP for ongoing monitoring of her lipids, she had been on rosuvastatin in the past. Other TIA risk factors for this patient include diabetes mellitus and hyperlipidemia. This patient does have some mild difficulty with recall, she could be developing age-related mild cognitive impairment. Her brain MRI does reveal atrophy and a mild degree of chronic small vessel ischemic disease. I do not think she has Alzheimer's disease at this time. I discussed obtaining possible additional testing as an outpatient including an EEG and 30-day mobile cardiac outpatient telemetry. I would not start an antiseizure medication at this time. I can see her for a follow-up in neurology clinic in 2 to 3 weeks. Please call with any questions. (I did see this patient just prior to her discharge from the [facility].) History of Present Illness Reason for Consultation: TIA/altered MS Requesting Physician: Compa Attending Physician: Ron Tavarez DO History of Present Illness The patient is an 85-year-old female who presented to the [facility] with a transient episode of confusion that occurred at home, she was walking with her walker, her spouse was asking her questions, and she was responding with "that is not right." Her speech may have been a little slurred. She was able to identify her at that time, but could not come up with his last name. There was no collapse, dizziness, or obvious focal weakness. The episode lasted for probably about 25 minutes. She recalls having a similar, although much briefer episode about 1 year ago. She recently underwent lumbar spine fusion surgery at [facility] this past May and has done very well. No recent signs or symptoms suggestive of infection. She has been ambulating independently, and with a walker. She has not resumed driving yet. She had bee n taking clopidogrel prior to her back surgery, and resume this medication afterwards. She had seen Dr. Lewis in neurological consultation on May 02, 2025 regarding a history of TIA-like episodes characterized by sudden change in speech, 1 episode occurred in March 2024, the second occurred in March 2025. She was taking clopidogrel and rosuvastatin at that time, she was cleared to proceed with lumbar spine surgery. She is currently feeling well and without any significant complaint. No headache, no vision disturbance, no change in speech or swallowing, no vertigo or dizziness, no focal weakness. She is mildly amnestic for the recent episode although her spouse is at bedside and has filled in much of the details. At baseline, she has not experienced significant difficulty with her memory or cognitive functioning other than perhaps some mild age-related forgetfulness at times. There have been no concerns regarding an evolving underlying dementia. She has no known history of seizure disorder. I did independently review her neuroimaging that was completed during this hospitalization including CT of the head, CTA of the head and neck, and brain MRI. She has a moderate degree of atherosclerotic plaque within the carotid arteries, no hemodynamically significant stenosis of any vessel. There was no evidence of acute stroke on MRI, the study does reveal age-related atrophy and c hronic small vessel ischemic disease. She had an unremarkable echocardiogram and an electrocardiogram revealed a normal sinus rhythm. Allergies Allergy/AdvReac Type Severity Reaction Status Date / Time furosemide Allergy Mild Rash Verified 07/24/25 11:22 Sulfa (Sulfonamide Allergy Mild Rash Verified 07/24/25 11:22 Antibiotics) Home Medications Medication Instructions Recorded Confirmed Type vitamins A,C,W-pjvf-fveala 2,148 2 tab PO BID 12/02/21 07/31/25 History mcg-113 mg-45 mg-17.4 mg tablet (PreserVision AREDS) amlodipine 10 mg tablet 10 mg PO QAM #90 tabs 10/11/24 07/31/25 Rx azelastine 137 mcg (0.1 %) nasal 1 spray intranasal BID #30 mL 04/24/25 07/31/25 Rx spray coenzyme Q10 100 mg capsule 100 mg PO QAM 05/15/25 07/31/25 History (CoQ-10) cyanocobalamin (vitamin B-12) 1,000 mcg PO QAM 05/15/25 07/31/25 History 1,000 mcg capsule clopidogrel 75 mg tablet 75 mg PO QAM #90 tabs 07/30/25 07/31/25 Rx metformin 500 mg tablet,extended 500 mg PO BID #60 tabs 07/30/25 07/31/25 Rx release 24 hr Patient History Medical History Thyroid nodule Lumbosacral spondylosis Postmenopausal state Spondylolisthesis of lumbar region Direct hyperbilirubinemia Ecchymosis Pulmonary hypertension Echo 03/2025: Mild pulmonary hypertension. Estimated RVSP 39 mmHg. Chronic sinusitis Generalized weakness Chronic fatigue Hx of transient ischemic attack (TIA) 03/2024 + 03/2025 Follows with [facility] Neurology Reason for Plavix Chronic kidney disease, stage [address] 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 Daughter No problems noted. Son No problems noted. Family/Other Hypertension Other No family history of adverse response to anesthesia No family history of bleeding disorder Denies family history of Ovarian cancer Prostate cancer Myocardial infarction Breast cancer Colorectal cancer Social History Smoking Status: Never smoker Tobacco Type: Declines Second Hand Exposure: No; Do You Dip or Chew Tobacco: No; Hx Alcohol Use: No Hx Substance Use: No Preferred Language: Estonian Communication Ability: Effective Visual Impairment: No Limitations Hearing Ability: Normal Plant Engineering Supervisor Required: No Beliefs That Will Affect Care: Quaker marital status: Current Living Situation: Spouse Current Living Situation Comment: home with current occupational status: retired 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 How many Children do You have: 2 Feels Safe at Home: Yes Childhood Exposure to Second-Hand Smoke: Yes Diet: diabetic caffeine: No during the past year weight has: remained stable Dental Care, Regularly: Yes Physical Activity Frequency: Daily Seatbelt Use: always Sunscreen Use: Yes Assistive Devices: Walker Review of Systems Constitutional: no fever Eyes: no blind spots and no diplopia Ear, Nose, Mouth, Throat: no hearing loss Respiratory: no dyspnea Cardiovascular: no chest pain and no palpitations Gastrointestinal: no nausea and no vomiting Musculoskeletal: no myalgia Integumentary: no rash and no lesions Neurologic: as per Subjective / HPI, + gait abnormality and + memory loss; no localized weakness, no loss of sensation, no tremor(s) and no headache(s) Psychiatric: no depression and no anxiety Hematologic / Lymphatic: no easy bleeding and no easy bruising Exam (Neuro) Constitutional: well developed and well nourished; no acute distress Eyes: normal visual mayer by confrontation, PERRL and EOM intact bilaterally; no nystagmus Neurologic: Oriented to:: Person, Place and Time Memory: Remote Intact; negative Short Term Intact Attention: Span Intact and Concentration Intact Speech Fluency: negative Dysarthria or Dysfluency Speech Aphasia: negative Aphasia Fund of Knowledge: Current Events, Past History and Vocabulary Cranial Nerves: Normal II, III, IV, , V, VII, VIII, IX, X, XI and XII Motor Strength: Normal Lower Extremities and Normal Upper Extremities Motor Tone: Normal Lower Extremities and Normal Upper Extremities Muscle Bulk/Involuntary Movements: No Involuntary Movements; negative Muscle Atrophy Sensation: Light Touch Intact, Pain/Temperature Intact and Proprioception Intact Coordination: Limited Balance; negative Dysdiadochokinesia, Finger-Nose Abnormal or Heel-Armendariz Abnormal Deep Tendon Reflexes: Rt Triceps: 2+, Lt Triceps: 2+, Rt Biceps: 2+, Lt Biceps: 2+, Rt Brachioradialis: 2+, Lt Brachioradialis: 2+, Rt Patellar: 2+, Lt Patellar: 2+, Rt Ankle: 1+ and Lt Ankle: 1+ Gait: Stooped and Antalgic Results & Data Vital Signs (Past 12 Hours) Vital Signs Temp Pulse Pulse Resp BP Pulse Ox O2 Del Method 08/01/25 15:55 36.6 C 63 16 123/76 97 Room Air 08/01/25 13:05 70 08/01/25 10:45 37.2 C 75 16 131/72 96 Room Air 08/01/25 07:31 36.9 C 70 16 139/69 93 Room Air Laboratory Results WBC 8.18, hemoglobin 12.6, platelet count 308, sodium 139, potassium 3.7, creatinine 0.81, glucose 119, calcium 9.4, magnesium 1.7, TSH 1.200. Lipid panel from this past April reviewed. Triglycerides 131, cholesterol 110, LDL 35, HDL 49 Coding Level of Care Code 45395 INT INP/OBS CARE 75MIN Diagnoses Confusion with nonfocal neurological examination R41.0 Stroke-like symptoms R29.90 S/P lumbar and lumbosacral fusion by anterior technique Z98.1 Time Spent (min) 80 Comment Total time includes patient contact, chart review, counseling, note preparation
== END 2025-08-01 18:28 | disposition home or self-care (01) ==
LOC: ED 10:42 → 2N 10:42